=== PATIENT | male | born 1975 | race Two or more races ===

== ENCOUNTER 2016-10-27 18:58 | Inpatient (IN) | payer OTHER ==
[~2016-10-27] VITALS: Ht 172.7 cm; Wt 80.9 kg
[2016-10-27 19:44] LABS: ASPARTATE AMINO TRANSFERASE 57 U/L (15-37); BLOOD UREA NITROGEN 20 mg/dL (7-18)
[2016-10-27 19:47] LABS: HEMOGLOBIN 7.7 g/dL (13.7-18.0); WHITE BLOOD COUNT 45.4 x10^3/uL (3.4-10)
[2016-10-27 19:53] LABS: HEMATOCRIT 22.5 % (39.2-51.8)
[2016-10-27 19:58] LABS: DIFF TOTAL CELLS COUNTED 100 CELL DIFF
[2016-10-27 20:03] LABS: VERIFY COUNTS? YES
[2016-10-27 20:04] LABS: ANISOCYTOSIS 1+; OVALOCYTES 1+
[2016-10-27 20:09] LABS: POIKILOCYTOSIS 1+
[2016-10-27] MEDS ORDERED: SODIUM CHLORIDE 0.9% 1,000 ML IV ONE (21:56)
[2016-10-27] MEDS ORDERED: ONDANSETRON 2MG/ML, 2ML IVPush PRN (22:00)
[2016-10-27] MEDS ORDERED: MORPHINE SULFATE 4 MG/ML, 1ML IVPush PRN (22:00)
[2016-10-27] MEDS: SODIUM CHLORIDE 0.9% 1,000 ML IV SCH (23:43)
[2016-10-28] MEDS ORDERED: ACETAMINOPHEN 325 MG TABLET PO PRN
[2016-10-28] MEDS ORDERED: TEMAZEPAM 15 MG CAPSULE PO PRN
[2016-10-28] MEDS ORDERED: ENALAPRILAT 1.25 MG/ML, 2ML IVPush PRN
[2016-10-28] MEDS ORDERED: ONDANSETRON ODT 4 MG PO PRN
[2016-10-28] MEDS ORDERED: DOCUSATE 100 MG CAPSULE PO PRN
[2016-10-28 03:17] VITALS: BP 108/69
[2016-10-28 05:02] LABS: BLOOD UREA NITROGEN 23 mg/dL (7-18)
[2016-10-28 05:07] LABS: HEMATOCRIT 20.7 % (39.2-51.8)
[2016-10-28 06:15] LABS: DIFF TOTAL CELLS COUNTED 100 CELL DIFF
[2016-10-28 06:20] LABS: VERIFY COUNTS? YES
[2016-10-28 06:21] LABS: ANISOCYTOSIS 1+
[2016-10-28 06:22] LABS: OVALOCYTES 1+; POIKILOCYTOSIS 1+
[2016-10-28 06:23] VITALS: BP 95/62
[2016-10-28] MEDS: SODIUM CHLORIDE 0.9% 1,000 ML IV SCH ×3 (07:43→23:49)
[2016-10-28 09:52] LABS: HIV 1&2 ANTIBODY SCREEN Nonreactive (Nonreactive); HIV-1 p24 ANTIGEN Nonreactive (Nonreactive)
[2016-10-28 09:53] LABS: FERRITIN 561.7 ng/mL (26-388)
[2016-10-28 13:02] VITALS: BP 117/67
[2016-10-28 21:23] VITALS: BP 104/82
[2016-10-29] VITALS (7 sets, daily range): BP systolic 100–124; BP diastolic 60–72
[2016-10-29 04:45] LABS: BLOOD UREA NITROGEN 19 mg/dL (7-18)
[2016-10-29 04:48] LABS: ASPARTATE AMINO TRANSFERASE 59 U/L (15-37)
[2016-10-29] MEDS: SODIUM CHLORIDE 0.9% 1,000 ML IV SCH ×2 (06:26→16:37)
[2016-10-29 08:39] LABS: WHITE BLOOD COUNT 44.4 x10^3/uL (3.4-10)
[2016-10-29 08:41] LABS: HEMOGLOBIN 6.9 g/dL (13.7-18.0)
[2016-10-29 08:42] LABS: DIFF TOTAL CELLS COUNTED 100 CELL DIFF
[2016-10-29 08:45] LABS: ANISOCYTOSIS 1+; OVALOCYTES 1+; VERIFY COUNTS? YES
[2016-10-29 08:48] LABS: POIKILOCYTOSIS 1+
[2016-10-29] MEDS ORDERED: ACETAMINOPHEN 325 MG TABLET PO ONE (10:30)
[2016-10-29] MEDS: HYDROCORTISONE 100 MG INJ. IVPush SCH (11:55)
[2016-10-30] MEDS: SODIUM CHLORIDE 0.9% 1,000 ML IV SCH ×3 (00:11→18:43)
[2016-10-30 01:32] VITALS: BP 118/66
[2016-10-30 04:49] LABS: HEMOGLOBIN 7.2 g/dL (13.7-18.0); WHITE BLOOD COUNT 47.8 x10^3/uL (3.4-10)
[2016-10-30 04:55] LABS: ASPARTATE AMINO TRANSFERASE 37 U/L (15-37); BLOOD UREA NITROGEN 18 mg/dL (7-18)
[2016-10-30 05:51] LABS: DIFF TOTAL CELLS COUNTED 100 CELL DIFF
[2016-10-30 05:57] LABS: VERIFY COUNTS? YES
[2016-10-30 05:58] LABS: ANISOCYTOSIS 1+; OVALOCYTES 1+; POIKILOCYTOSIS 1+
[2016-10-30 06:53] VITALS: BP 114/71
[2016-10-30] MEDS ORDERED: MIDAZOLAM 1 MG/ML, 5ML ONE (12:17)
[2016-10-30] MEDS ORDERED: FENTANYL PF 100 MCG/2ML ONE (12:18)
[2016-10-30] MEDS ORDERED: NALOXONE 1 MG/ML, 2ML ONE (12:18)
[2016-10-30] MEDS ORDERED: FLUMAZENIL 0.1 MG/1 ML, 5ML ONE (12:18)
[2016-10-30 13:03] VITALS: BP 108/66
[2016-10-30 19:18] VITALS: BP 109/61
[2016-10-31] VITALS (10 sets, daily range): BP systolic 104–128; BP diastolic 61–71
[2016-10-31] MEDS: SODIUM CHLORIDE 0.9% 1,000 ML IV SCH ×2 (02:57→18:34)
[2016-10-31 05:32] LABS: WHITE BLOOD COUNT 34.9 x10^3/uL (3.4-10)
[2016-10-31 05:44] LABS: HEMATOCRIT 20.4 % (39.2-51.8); HEMOGLOBIN 6.9 g/dL (13.7-18.0)
[2016-10-31 06:20] LABS: DIFF TOTAL CELLS COUNTED 100 CELL DIFF
[2016-10-31 06:29] LABS: VERIFY COUNTS? YES
[2016-10-31] MEDS ORDERED: ACETAMINOPHEN 325 MG TABLET PO ONE (06:30)
[2016-10-31 06:36] LABS: POIKILOCYTOSIS 1+
[2016-10-31 06:37] LABS: ANISOCYTOSIS 2+
[2016-10-31] MEDS: DIPHENHYDRAMINE 50 MG/ML, 1ML IVPush PRN (08:22)
[2016-10-31] MEDS: HYDROCORTISONE 100 MG INJ. IVPush SCH (08:22)
[2016-11-01] MEDS: SODIUM CHLORIDE 0.9% 1,000 ML IV SCH ×3 (01:44→19:05)
[2016-11-01 02:55] VITALS: BP 112/58
[2016-11-01 07:02] VITALS: BP 119/75
[2016-11-01 10:30] LABS: HEMATOCRIT 24.1 % (39.2-51.8); HEMOGLOBIN 8.4 g/dL (13.7-18.0); WHITE BLOOD COUNT 33.2 x10^3/uL (3.4-10)
[2016-11-01 10:33] LABS: DIFF TOTAL CELLS COUNTED 100 CELL DIFF
[2016-11-01 10:43] LABS: VERIFY COUNTS? YES
[2016-11-01 10:56] LABS: ANISOCYTOSIS 1+; OVALOCYTES 1+
[2016-11-01] MEDS: ALLOPURINOL 300 MG TABLET PO SCH (11:10)
[2016-11-01 12:28] VITALS: BP 121/74
[2016-11-01 19:45] VITALS: BP 115/70
[2016-11-02 01:59] VITALS: BP 105/70
[2016-11-02] MEDS: SODIUM CHLORIDE 0.9% 1,000 ML IV SCH ×4 (03:04→19:05)
[2016-11-02 03:23] LABS: ASPARTATE AMINO TRANSFERASE 63 U/L (15-37); BLOOD UREA NITROGEN 17 mg/dL (7-18)
[2016-11-02 03:41] LABS: HEMATOCRIT 23.9 % (39.2-51.8); HEMOGLOBIN 8.1 g/dL (13.7-18.0); WHITE BLOOD COUNT 27.8 x10^3/uL (3.4-10)
[2016-11-02 04:23] LABS: DIFF TOTAL CELLS COUNTED 100 CELL DIFF
[2016-11-02 04:33] LABS: VERIFY COUNTS? YES
[2016-11-02 04:34] LABS: ANISOCYTOSIS 2+
[2016-11-02 04:47] LABS: OVALOCYTES 1+
[2016-11-02 04:49] LABS: LARGE PLATELETS 1+
[2016-11-02 07:03] VITALS: BP 111/75
[2016-11-02] MEDS: ALLOPURINOL 300 MG TABLET PO SCH (07:56)
[2016-11-02] MEDS: FAMOTIDINE 20 MG/2 ML IVPush SCH (10:15)
[2016-11-02] MEDS: ONDANSETRON 12 MG in SODIUM CHLORIDE 0.9% 50 ML IVPB SCH (10:17)
[2016-11-02] MEDS: SODIUM CHLORIDE 0.9% IV SCH (10:53)
[2016-11-02] MEDS: IDARUBICIN IV SCH (10:53)
[2016-11-02] MEDS: CYTARABINE IV SCH (10:53)
[2016-11-02 13:18] VITALS: BP 104/60
[2016-11-02 20:04] VITALS: BP 102/65
[2016-11-03 02:53] VITALS: BP 113/72
[2016-11-03 03:42] LABS: HEMATOCRIT 23.8 % (39.2-51.8); HEMOGLOBIN 7.9 g/dL (13.7-18.0); WHITE BLOOD COUNT 17.6 x10^3/uL (3.4-10)
[2016-11-03 03:47] LABS: DIFF TOTAL CELLS COUNTED 100 CELL DIFF
[2016-11-03 03:52] LABS: ASPARTATE AMINO TRANSFERASE 50 U/L (15-37); BLOOD UREA NITROGEN 21 mg/dL (7-18)
[2016-11-03 04:00] LABS: ANISOCYTOSIS 1+; POLYCHROMASIA 1+; VERIFY COUNTS? YES
[2016-11-03 04:01] LABS: OVALOCYTES 1+
[2016-11-03 08:04] VITALS: BP 113/58
[2016-11-03] MEDS: SODIUM CHLORIDE 0.9% 1,000 ML IV SCH ×2 (10:02→20:35)
[2016-11-03] MEDS: FAMOTIDINE 20 MG/2 ML IVPush SCH (10:03)
[2016-11-03] MEDS: ONDANSETRON 12 MG in SODIUM CHLORIDE 0.9% 50 ML IVPB SCH (10:03)
[2016-11-03] MEDS: ALLOPURINOL 300 MG TABLET PO SCH (10:03)
[2016-11-03] MEDS: IDARUBICIN IV SCH (11:37)
[2016-11-03] MEDS: CYTARABINE IV SCH (11:38)
[2016-11-03] MEDS: SODIUM CHLORIDE 0.9% IV SCH (11:38)
[2016-11-03 13:53] VITALS: BP 102/63
[2016-11-03 19:34] VITALS: BP 97/66
[2016-11-04 01:33] VITALS: BP 113/68
[2016-11-04 04:51] LABS: HEMATOCRIT 23.6 % (39.2-51.8); HEMOGLOBIN 7.9 g/dL (13.7-18.0); WHITE BLOOD COUNT 8.4 x10^3/uL (3.4-10)
[2016-11-04 05:00] LABS: ASPARTATE AMINO TRANSFERASE 53 U/L (15-37); BLOOD UREA NITROGEN 25 mg/dL (7-18)
[2016-11-04 06:36] LABS: DIFF TOTAL CELLS COUNTED 100 CELL DIFF
[2016-11-04 06:39] LABS: VERIFY COUNTS? YES
[2016-11-04 06:40] LABS: ANISOCYTOSIS 1+
[2016-11-04 06:41] LABS: MICROCYTOSIS 1+; OVALOCYTES 1+
[2016-11-04 06:42] LABS: SCHISTOCYTES 1+
[2016-11-04 07:15] VITALS: BP 102/58
[2016-11-04] MEDS: SODIUM CHLORIDE 0.9% 1,000 ML IV SCH ×2 (09:07→19:58)
[2016-11-04] MEDS: ALLOPURINOL 300 MG TABLET PO SCH (09:07)
[2016-11-04] MEDS: ONDANSETRON 12 MG in SODIUM CHLORIDE 0.9% 50 ML IVPB SCH (10:07)
[2016-11-04] MEDS: FAMOTIDINE 20 MG/2 ML IVPush SCH (10:07)
[2016-11-04] MEDS ORDERED: IDARUBICIN IV ONE (11:30)
[2016-11-04 13:11] VITALS: BP 104/66
[2016-11-04] MEDS: CYTARABINE IV SCH (13:42)
[2016-11-04] MEDS: SODIUM CHLORIDE 0.9% IV SCH (13:42)
[2016-11-04] MEDS: ACYCLOVIR 400 MG TABLET PO SCH (19:57)
[2016-11-04] MEDS: CIPROFLOXACIN 500 MG TABLET PO SCH (19:57)
[2016-11-04 20:27] VITALS: BP 109/68
[2016-11-04] MEDS ORDERED: ACYCLOVIR 400 MG TABLET PO SCH (21:00)
[2016-11-04] MEDS ORDERED: CIPROFLOXACIN 500 MG TABLET PO SCH (21:00)
[2016-11-05] VITALS (9 sets, daily range): BP systolic 98–117; BP diastolic 62–73
[2016-11-05 04:35] LABS: HEMOGLOBIN 7.7 g/dL (13.7-18.0); WHITE BLOOD COUNT 3.8 x10^3/uL (3.4-10)
[2016-11-05 04:37] LABS: ASPARTATE AMINO TRANSFERASE 62 U/L (15-37); BLOOD UREA NITROGEN 22 mg/dL (7-18)
[2016-11-05 04:38] LABS: HEMATOCRIT 22.8 % (39.2-51.8)
[2016-11-05 05:20] LABS: DIFF TOTAL CELLS COUNTED 100 CELL DIFF
[2016-11-05 05:25] LABS: VERIFY COUNTS? YES
[2016-11-05 05:26] LABS: ANISOCYTOSIS 1+; OVALOCYTES 1+
[2016-11-05] MEDS: HYDROCORTISONE 100 MG INJ. IVPush SCH (08:59)
[2016-11-05] MEDS: CIPROFLOXACIN 500 MG TABLET PO SCH ×2 (09:00→20:20)
[2016-11-05] MEDS: ACYCLOVIR 400 MG TABLET PO SCH ×2 (09:00→20:20)
[2016-11-05] MEDS: ALLOPURINOL 300 MG TABLET PO SCH (09:00)
[2016-11-05] MEDS: FAMOTIDINE 20 MG/2 ML IVPush SCH (10:03)
[2016-11-05] MEDS: ONDANSETRON 12 MG in SODIUM CHLORIDE 0.9% 50 ML IVPB SCH (14:02)
[2016-11-05] MEDS: SODIUM CHLORIDE 0.9% 1,000 ML IV SCH (14:03)
[2016-11-05] MEDS: CYTARABINE IV SCH (14:36)
[2016-11-05] MEDS: SODIUM CHLORIDE 0.9% IV SCH (14:36)
[2016-11-05] MEDS ORDERED: HYDROCORTISONE 100 MG INJ. IVPush ONE (19:17)
[2016-11-05] MEDS ORDERED: ONDANSETRON ODT 4 MG PO PRN (19:30)
[2016-11-05] MEDS ORDERED: TEMAZEPAM 15 MG CAPSULE PO PRN (19:30)
[2016-11-05] MEDS ORDERED: ENALAPRILAT 1.25 MG/ML, 2ML IVPush PRN (19:30)
[2016-11-05] MEDS: DOCUSATE 100 MG CAPSULE PO PRN (20:30)
[2016-11-06] MEDS: SODIUM CHLORIDE 0.9% 1,000 ML IV SCH ×2 (03:12→15:07)
[2016-11-06 03:32] VITALS: BP 123/70
[2016-11-06 03:44] LABS: ASPARTATE AMINO TRANSFERASE 38 U/L (15-37); BLOOD UREA NITROGEN 25 mg/dL (7-18)
[2016-11-06 03:47] LABS: HEMATOCRIT 24.6 % (39.2-51.8); HEMOGLOBIN 8.6 g/dL (13.7-18.0); WHITE BLOOD COUNT 3.1 x10^3/uL (3.4-10)
[2016-11-06 04:08] LABS: DIFF TOTAL CELLS COUNTED 100 CELL DIFF
[2016-11-06 04:19] LABS: ANISOCYTOSIS 1+; OVALOCYTES 1+; VERIFY COUNTS? YES
[2016-11-06] MEDS: ALLOPURINOL 300 MG TABLET PO SCH (08:11)
[2016-11-06] MEDS: CIPROFLOXACIN 500 MG TABLET PO SCH ×2 (08:11→19:50)
[2016-11-06] MEDS: DOCUSATE 100 MG CAPSULE PO PRN ×2 (08:11→19:52)
[2016-11-06] MEDS: ACYCLOVIR 400 MG TABLET PO SCH ×2 (08:11→19:50)
[2016-11-06 08:13] VITALS: BP 105/63
[2016-11-06] MEDS: ONDANSETRON 12 MG in SODIUM CHLORIDE 0.9% 50 ML IVPB SCH (10:22)
[2016-11-06] MEDS: FAMOTIDINE 20 MG/2 ML IVPush SCH (10:22)
[2016-11-06 13:51] VITALS: BP 114/64
[2016-11-06] MEDS: CYTARABINE IV SCH (15:21)
[2016-11-06] MEDS: SODIUM CHLORIDE 0.9% IV SCH (15:21)
[2016-11-06 19:13] VITALS: BP 111/69
[2016-11-07] MEDS: SODIUM CHLORIDE 0.9% 1,000 ML IV SCH ×2 (02:34→16:10)
[2016-11-07 02:37] VITALS: BP 116/70
[2016-11-07 05:28] LABS: HEMATOCRIT 23.9 % (39.2-51.8); HEMOGLOBIN 8.2 g/dL (13.7-18.0)
[2016-11-07 05:30] LABS: ASPARTATE AMINO TRANSFERASE 36 U/L (15-37); BLOOD UREA NITROGEN 19 mg/dL (7-18)
[2016-11-07 05:34] LABS: WHITE BLOOD COUNT 1.2 x10^3/uL (3.4-10)
[2016-11-07 05:45] LABS: DIFF TOTAL CELLS COUNTED 100 CELL DIFF
[2016-11-07 05:46] LABS: VERIFY COUNTS? YES
[2016-11-07 05:47] LABS: ANISOCYTOSIS 1+
[2016-11-07 07:46] VITALS: BP 103/63
[2016-11-07] MEDS: CIPROFLOXACIN 500 MG TABLET PO SCH ×2 (08:40→20:52)
[2016-11-07] MEDS: ACYCLOVIR 400 MG TABLET PO SCH ×2 (08:40→20:52)
[2016-11-07] MEDS: ALLOPURINOL 300 MG TABLET PO SCH (08:41)
[2016-11-07] MEDS: FAMOTIDINE 20 MG/2 ML IVPush SCH (12:58)
[2016-11-07] MEDS: ONDANSETRON 12 MG in SODIUM CHLORIDE 0.9% 50 ML IVPB SCH (13:18)
[2016-11-07] MEDS: DOCUSATE 100 MG CAPSULE PO PRN ×2 (16:16→20:55)
[2016-11-07 17:07] VITALS: BP 116/65
[2016-11-07] MEDS: CYTARABINE IV SCH (17:37)
[2016-11-07] MEDS: SODIUM CHLORIDE 0.9% IV SCH (17:37)
[2016-11-07 19:58] VITALS: BP 108/69
[2016-11-08 04:25] VITALS: BP 118/72
[2016-11-08] MEDS: SODIUM CHLORIDE 0.9% 1,000 ML IV SCH ×2 (04:32→18:01)
[2016-11-08 05:16] LABS: HEMATOCRIT 23.4 % (39.2-51.8); HEMOGLOBIN 7.9 g/dL (13.7-18.0)
[2016-11-08 05:18] LABS: WHITE BLOOD COUNT 0.8 x10^3/uL (3.4-10)
[2016-11-08 05:36] LABS: ASPARTATE AMINO TRANSFERASE 44 U/L (15-37); BLOOD UREA NITROGEN 14 mg/dL (7-18)
[2016-11-08 06:16] LABS: DIFF TOTAL CELLS COUNTED 100 CELL DIFF
[2016-11-08 06:23] LABS: VERIFY COUNTS? YES
[2016-11-08 06:25] LABS: ANISOCYTOSIS 1+
[2016-11-08 07:23] VITALS: BP 100/67
[2016-11-08] MEDS: ALLOPURINOL 300 MG TABLET PO SCH (09:32)
[2016-11-08] MEDS: CIPROFLOXACIN 500 MG TABLET PO SCH ×2 (09:32→20:46)
[2016-11-08] MEDS: ACYCLOVIR 400 MG TABLET PO SCH ×2 (09:32→20:46)
[2016-11-08] MEDS: DOCUSATE 100 MG CAPSULE PO PRN (09:36)
[2016-11-08 14:00] VITALS: BP 117/71
[2016-11-08] MEDS: NYSTATIN 500,000 UNITS/5 ML UDC PO SCH ×2 (16:16→20:46)
[2016-11-08] MEDS ORDERED: FAMOTIDINE 20 MG/2 ML IVPush ONE (17:00)
[2016-11-08] MEDS ORDERED: ONDANSETRON 12 MG in SODIUM CHLORIDE 0.9% 50 ML IVPB ONE (17:00)
[2016-11-08] MEDS: CYTARABINE IV SCH (18:06)
[2016-11-08] MEDS: SODIUM CHLORIDE 0.9% IV SCH (18:06)
[2016-11-08 19:26] VITALS: BP 103/66
[2016-11-09] VITALS (7 sets, daily range): BP systolic 101–129; BP diastolic 61–76
[2016-11-09] MEDS: NYSTATIN 500,000 UNITS/5 ML UDC PO SCH ×4 (04:16→20:28)
[2016-11-09] MEDS: SODIUM CHLORIDE 0.9% 1,000 ML IV SCH (04:16)
[2016-11-09 06:18] LABS: HEMOGLOBIN 7.4 g/dL (13.7-18.0)
[2016-11-09 06:21] LABS: HEMATOCRIT 21.5 % (39.2-51.8); WHITE BLOOD COUNT 0.5 x10^3/uL (3.4-10)
[2016-11-09 06:30] LABS: BLOOD UREA NITROGEN 13 mg/dL (7-18)
[2016-11-09 06:34] LABS: ASPARTATE AMINO TRANSFERASE 53 U/L (15-37)
[2016-11-09] MEDS: ALLOPURINOL 300 MG TABLET PO SCH (09:33)
[2016-11-09] MEDS: ACYCLOVIR 400 MG TABLET PO SCH ×2 (09:33→20:27)
[2016-11-09] MEDS: CIPROFLOXACIN 500 MG TABLET PO SCH ×2 (09:33→20:28)
[2016-11-09] MEDS: DIPHENHYDRAMINE 50 MG/ML, 1ML IVPush PRN (09:35)
[2016-11-09] MEDS: ACETAMINOPHEN 325 MG TABLET PO PRN (09:35)
[2016-11-10] VITALS (8 sets, daily range): BP systolic 100–126; BP diastolic 55–76
[2016-11-10] MEDS: SODIUM CHLORIDE 0.9% 1,000 ML IV SCH ×2 (03:24→16:56)
[2016-11-10 03:53] LABS: ASPARTATE AMINO TRANSFERASE 92 U/L (15-37); BLOOD UREA NITROGEN 12 mg/dL (7-18)
[2016-11-10] MEDS ORDERED: VANCOMYCIN PER PHARMACY MC PRN (04:00)
[2016-11-10] MEDS ORDERED: VANCOMYCIN PMX 1GM/200ML 200 ML IV ONE (04:00)
[2016-11-10 04:04] LABS: HEMATOCRIT 20.2 % (39.2-51.8); HEMOGLOBIN 6.9 g/dL (13.7-18.0); WHITE BLOOD COUNT 0.4 x10^3/uL (3.4-10)
[2016-11-10] MEDS: CEFEPIME 2 GM in DEXTROSE 5% 100 ML IV SCH ×3 (04:09→20:48)
[2016-11-10] MEDS: ACETAMINOPHEN 325 MG TABLET PO PRN ×3 (04:09→22:39)
[2016-11-10 04:10] LABS: DIFF TOTAL CELLS COUNTED 100 CELL DIFF
[2016-11-10 04:12] LABS: VERIFY COUNTS? YES
[2016-11-10 04:13] LABS: ANISOCYTOSIS 1+; OVALOCYTES 1+
[2016-11-10] MEDS: NYSTATIN 500,000 UNITS/5 ML UDC PO SCH ×4 (04:50→20:48)
[2016-11-10] MEDS: VANCOMYCIN 1,700 MG in SODIUM CHLORIDE 0.9% 250 ML IV SCH ×2 (04:51→16:56)
[2016-11-10] MEDS ORDERED: PHARMACOKINETIC CONSULTATION MC ONE (05:00)
[2016-11-10] MEDS ORDERED: PHARMACOKINETIC MONITORING MC PRN (05:00)
[2016-11-10] MEDS: ACYCLOVIR 400 MG TABLET PO SCH ×2 (08:20→20:49)
[2016-11-10] MEDS: CIPROFLOXACIN 500 MG TABLET PO SCH (08:20)
[2016-11-10] MEDS: ALLOPURINOL 300 MG TABLET PO SCH (08:20)
[2016-11-10 15:50] LABS: PATH.CAST-FLAG NOT PRESENT; SPERM-FLAG NOT PRESENT; SRC-FLAG NOT PRESENT; XTAL-FLAG NOT PRESENT; YLC-FLAG NOT PRESENT
[2016-11-11] VITALS (7 sets, daily range): BP systolic 98–121; BP diastolic 49–76
[2016-11-11] MEDS: CEFEPIME 2 GM in DEXTROSE 5% 100 ML IV SCH ×3 (04:18→20:08)
[2016-11-11] MEDS: NYSTATIN 500,000 UNITS/5 ML UDC PO SCH ×4 (05:17→20:08)
[2016-11-11] MEDS: VANCOMYCIN 1,700 MG in SODIUM CHLORIDE 0.9% 250 ML IV SCH ×2 (05:17→15:54)
[2016-11-11] MEDS: ACETAMINOPHEN 325 MG TABLET PO PRN ×3 (05:24→20:12)
[2016-11-11 05:43] LABS: HEMOGLOBIN 7.8 g/dL (13.7-18.0)
[2016-11-11 05:45] LABS: HEMATOCRIT 22.2 % (39.2-51.8); WHITE BLOOD COUNT 0.4 x10^3/uL (3.4-10)
[2016-11-11 05:57] LABS: ASPARTATE AMINO TRANSFERASE 66 U/L (15-37); BLOOD UREA NITROGEN 14 mg/dL (7-18)
[2016-11-11] MEDS: ACYCLOVIR 400 MG TABLET PO SCH ×2 (07:44→20:08)
[2016-11-11] MEDS: ALLOPURINOL 300 MG TABLET PO SCH (07:44)
[2016-11-11] MEDS: DIPHENHYDRAMINE 50 MG/ML, 1ML IVPush PRN (08:39)
[2016-11-11] MEDS: SODIUM CHLORIDE 0.9% 1,000 ML IV SCH (10:42)
[2016-11-11] MEDS ORDERED: ONDANSETRON ODT 4 MG PO PRN (17:28)
[2016-11-11] MEDS ORDERED: [UNRECOGNIZED DRUG - REMARK] MC PRN (18:00)
[2016-11-12 01:26] VITALS: BP 94/55
[2016-11-12] MEDS: SODIUM CHLORIDE 0.9% 1,000 ML IV SCH ×3 (01:30→20:54)
[2016-11-12] MEDS: CEFEPIME 2 GM in DEXTROSE 5% 100 ML IV SCH ×3 (04:13→20:54)
[2016-11-12 04:42] LABS: ASPARTATE AMINO TRANSFERASE 62 U/L (15-37)
[2016-11-12 04:48] LABS: BLOOD UREA NITROGEN 13 mg/dL (7-18); HEMOGLOBIN 7.1 g/dL (13.7-18.0)
[2016-11-12 04:50] LABS: HEMATOCRIT 20.3 % (39.2-51.8); WHITE BLOOD COUNT 0.3 x10^3/uL (3.4-10)
[2016-11-12] MEDS: NYSTATIN 500,000 UNITS/5 ML UDC PO SCH ×5 (06:09→20:56)
[2016-11-12 08:03] VITALS: BP 122/76
[2016-11-12] MEDS: ACETAMINOPHEN 325 MG TABLET PO PRN (09:35)
[2016-11-12] MEDS: ACYCLOVIR 400 MG TABLET PO SCH ×2 (09:35→20:54)
[2016-11-12] MEDS: ALLOPURINOL 300 MG TABLET PO SCH (09:35)
[2016-11-12 11:50] VITALS: BP 115/74
[2016-11-12 14:23] VITALS: BP 113/73
[2016-11-12] MEDS ORDERED: ENALAPRILAT 1.25 MG/ML, 2ML IVPush PRN (18:30)
[2016-11-12] MEDS ORDERED: ONDANSETRON ODT 4 MG PO PRN (18:30)
[2016-11-12] MEDS ORDERED: TEMAZEPAM 15 MG CAPSULE PO PRN (18:30)
[2016-11-12] MEDS ORDERED: DOCUSATE 100 MG CAPSULE PO PRN (18:30)
[2016-11-12 18:57] VITALS: BP 119/74
[2016-11-13] VITALS (10 sets, daily range): BP systolic 104–126; BP diastolic 66–75
[2016-11-13] MEDS: CEFEPIME 2 GM in DEXTROSE 5% 100 ML IV SCH ×3 (04:48→21:29)
[2016-11-13 05:08] LABS: HEMATOCRIT 19.4 % (39.2-51.8); HEMOGLOBIN 6.7 g/dL (13.7-18.0); WHITE BLOOD COUNT 0.4 x10^3/uL (3.4-10)
[2016-11-13 05:30] LABS: ASPARTATE AMINO TRANSFERASE 22 U/L (15-37); BLOOD UREA NITROGEN 12 mg/dL (7-18)
[2016-11-13 05:51] LABS: DIFF TOTAL CELLS COUNTED 25 CELL DIFFERENTIAL
[2016-11-13 05:54] LABS: ANISOCYTOSIS 1+; VERIFY COUNTS? YES
[2016-11-13] MEDS: ACYCLOVIR 400 MG TABLET PO SCH ×2 (10:00→21:29)
[2016-11-13] MEDS: NYSTATIN 500,000 UNITS/5 ML UDC PO SCH (10:00)
[2016-11-13] MEDS: SODIUM CHLORIDE 0.9% 1,000 ML IV SCH ×2 (10:00→21:29)
[2016-11-13] MEDS: ALLOPURINOL 300 MG TABLET PO SCH (10:00)
[2016-11-13] MEDS: ACETAMINOPHEN 325 MG TABLET PO PRN (10:33)
[2016-11-14 01:14] VITALS: BP 123/76
[2016-11-14] MEDS: ACETAMINOPHEN 325 MG TABLET PO PRN ×4 (01:18→23:11)
[2016-11-14] MEDS: CEFEPIME 2 GM in DEXTROSE 5% 100 ML IV SCH ×3 (04:41→19:59)
[2016-11-14 05:05] LABS: ASPARTATE AMINO TRANSFERASE 9 U/L (15-37); BLOOD UREA NITROGEN 10 mg/dL (7-18); HEMOGLOBIN 7.9 g/dL (13.7-18.0)
[2016-11-14 05:11] LABS: WHITE BLOOD COUNT 0.5 x10^3/uL (3.4-10)
[2016-11-14 05:37] LABS: DIFF TOTAL CELLS COUNTED 25 CELL DIFFERENTIAL
[2016-11-14 05:40] LABS: VERIFY COUNTS? YES
[2016-11-14 05:42] LABS: ANISOCYTOSIS 1+
[2016-11-14 08:00] VITALS: BP 124/81
[2016-11-14] MEDS: ALLOPURINOL 300 MG TABLET PO SCH (08:44)
[2016-11-14] MEDS: ACYCLOVIR 400 MG TABLET PO SCH ×2 (08:44→20:00)
[2016-11-14] MEDS: SODIUM CHLORIDE 0.9% 1,000 ML IV SCH ×2 (11:28→23:11)
[2016-11-14 13:00] VITALS: BP 114/70
[2016-11-14 13:36] VITALS: BP 114/72
[2016-11-14] MEDS ORDERED: OMNIPAQUE 350 MG/ML, 75ML BOTTLE ONE (17:15)
[2016-11-14 19:53] VITALS: BP 124/82
[2016-11-15] VITALS (13 sets, daily range): BP systolic 96–126; BP diastolic 61–70
[2016-11-15] MEDS: CEFEPIME 2 GM in DEXTROSE 5% 100 ML IV SCH ×3 (05:00→19:57)
[2016-11-15 05:35] LABS: HEMOGLOBIN 7.4 g/dL (13.7-18.0)
[2016-11-15 05:42] LABS: ASPARTATE AMINO TRANSFERASE 12 U/L (15-37); BLOOD UREA NITROGEN 10 mg/dL (7-18)
[2016-11-15 05:59] LABS: HEMATOCRIT 21.3 % (39.2-51.8); WHITE BLOOD COUNT 0.4 x10^3/uL (3.4-10)
[2016-11-15 06:04] LABS: DIFF TOTAL CELLS COUNTED 25 CELL DIFFERENTIAL
[2016-11-15 06:07] LABS: ANISOCYTOSIS 1+; VERIFY COUNTS? YES
[2016-11-15] MEDS ORDERED: LIDOCAINE 1%, 20ML ONE (08:31)
[2016-11-15] MEDS: ACYCLOVIR 400 MG TABLET PO SCH ×2 (08:44→19:57)
[2016-11-15] MEDS: ACETAMINOPHEN 325 MG TABLET PO PRN ×3 (08:44→22:24)
[2016-11-15] MEDS: ALLOPURINOL 300 MG TABLET PO SCH (08:44)
[2016-11-15] MEDS ORDERED: VANCOMYCIN IV ONE ×2 (09:30→16:30)
[2016-11-15] MEDS ORDERED: SODIUM CHLORIDE 0.9% IV ONE ×2 (09:30→16:30)
[2016-11-15] MEDS ORDERED: FENTANYL PF 100 MCG/2ML ONE (10:11)
[2016-11-15] MEDS ORDERED: MIDAZOLAM 1 MG/ML, 5ML ONE (10:11)
[2016-11-15] MEDS: SODIUM CHLORIDE 0.9% 1,000 ML IV SCH (11:25)
[2016-11-15] MEDS ORDERED: VANCOMYCIN 1,300 MG in SODIUM CHLORIDE 0.9% 250 ML IVPB SCH (21:00)
[2016-11-16 00:06] VITALS: BP 123/75
[2016-11-16] MEDS: SODIUM CHLORIDE 0.9% 1,000 ML IV SCH ×2 (02:45→13:20)
[2016-11-16] MEDS: VANCOMYCIN 1,300 MG in SODIUM CHLORIDE 0.9% 250 ML IVPB SCH ×2 (04:30→16:05)
[2016-11-16 04:52] LABS: HEMATOCRIT 24.8 % (39.2-51.8); HEMOGLOBIN 8.5 g/dL (13.7-18.0)
[2016-11-16 04:59] LABS: WHITE BLOOD COUNT 0.4 x10^3/uL (3.4-10)
[2016-11-16 05:01] LABS: BLOOD UREA NITROGEN 11 mg/dL (7-18)
[2016-11-16 05:20] LABS: ANISOCYTOSIS 1+; DIFF TOTAL CELLS COUNTED 25 CELL DIFFERENTIAL; VERIFY COUNTS? YES
[2016-11-16] MEDS: CEFEPIME 2 GM in DEXTROSE 5% 100 ML IV SCH ×3 (05:54→20:51)
[2016-11-16 06:54] VITALS: BP 122/69
[2016-11-16] MEDS: ACYCLOVIR 400 MG TABLET PO SCH ×2 (07:49→20:51)
[2016-11-16] MEDS: ALLOPURINOL 300 MG TABLET PO SCH (07:49)
[2016-11-16] MEDS: ACETAMINOPHEN 325 MG TABLET PO PRN ×2 (07:59→16:06)
[2016-11-16 13:22] VITALS: BP 104/73
[2016-11-16 18:32] VITALS: BP 101/63
[2016-11-17] VITALS (7 sets, daily range): BP systolic 106–133; BP diastolic 66–75
[2016-11-17] MEDS: ACETAMINOPHEN 325 MG TABLET PO PRN ×4 (02:25→20:51)
[2016-11-17] MEDS: SODIUM CHLORIDE 0.9% 1,000 ML IV SCH ×2 (02:26→20:51)
[2016-11-17] MEDS: VANCOMYCIN 1,300 MG in SODIUM CHLORIDE 0.9% 250 ML IVPB SCH (04:13)
[2016-11-17 05:38] LABS: HEMOGLOBIN 7.7 g/dL (13.7-18.0)
[2016-11-17 05:51] LABS: ASPARTATE AMINO TRANSFERASE 39 U/L (15-37); BLOOD UREA NITROGEN 11 mg/dL (7-18); LACTATE DEHYDROGENASE 99 U/L (87-241)
[2016-11-17 05:56] LABS: HEMATOCRIT 21.6 % (39.2-51.8); WHITE BLOOD COUNT 0.3 x10^3/uL (3.4-10)
[2016-11-17] MEDS: CEFEPIME 2 GM in DEXTROSE 5% 100 ML IV SCH ×3 (06:03→20:51)
[2016-11-17 06:21] LABS: ANISOCYTOSIS 2+; HYPOCHROMIA 1+
[2016-11-17] MEDS: ALLOPURINOL 300 MG TABLET PO SCH (07:15)
[2016-11-17] MEDS: ACYCLOVIR 400 MG TABLET PO SCH ×2 (07:15→20:51)
[2016-11-17] MEDS: DIPHENHYDRAMINE 50 MG/ML, 1ML IVPush PRN (08:54)
[2016-11-17] MEDS: MICAFUNGIN 100 MG in SODIUM CHLORIDE 0.9% 100 ML IV SCH (10:55)
[2016-11-17] MEDS: VANCOMYCIN 1,700 MG in SODIUM CHLORIDE 0.9% 250 ML IVPB SCH (16:05)
[2016-11-18] VITALS (9 sets, daily range): BP systolic 86–132; BP diastolic 58–79
[2016-11-18] MEDS: ACETAMINOPHEN 325 MG TABLET PO PRN (03:30)
[2016-11-18] MEDS: VANCOMYCIN 1,700 MG in SODIUM CHLORIDE 0.9% 250 ML IVPB SCH (03:31)
[2016-11-18] MEDS ORDERED: CATHFLO-ALTEPLASE 2 MG/2 ML CATHFLUSH ONE ×2 (05:30)
[2016-11-18] MEDS: CEFEPIME 2 GM in DEXTROSE 5% 100 ML IV SCH ×3 (05:51→20:25)
[2016-11-18] MEDS: ALLOPURINOL 300 MG TABLET PO SCH (08:34)
[2016-11-18] MEDS: ACYCLOVIR 400 MG TABLET PO SCH ×2 (08:34→20:25)
[2016-11-18 10:09] LABS: BLOOD UREA NITROGEN 11 mg/dL (7-18)
[2016-11-18 10:30] LABS: HEMOGLOBIN 7.5 g/dL (13.7-18.0)
[2016-11-18] MEDS: MICAFUNGIN 100 MG in SODIUM CHLORIDE 0.9% 100 ML IV SCH (10:31)
[2016-11-18 10:34] LABS: HEMATOCRIT 21.7 % (39.2-51.8); WHITE BLOOD COUNT 0.4 x10^3/uL (3.4-10)
[2016-11-18 10:36] LABS: DIFF TOTAL CELLS COUNTED 25 CELL DIFFE
[2016-11-18 10:37] LABS: ANISOCYTOSIS 1+
[2016-11-18 10:38] LABS: HYPOCHROMIA 1+; VERIFY COUNTS? YES
[2016-11-18] MEDS: DIPHENHYDRAMINE 50 MG/ML, 1ML IVPush PRN (11:48)
[2016-11-18] MEDS ORDERED: ACETAMINOPHEN 325 MG TABLET PO ONE (14:00)
[2016-11-18] MEDS ORDERED: HYDROCORTISONE 100 MG INJ. IVPush ONE (14:00)
[2016-11-18] MEDS: SODIUM CHLORIDE 0.9% 1,000 ML IV SCH (14:14)
[2016-11-18] MEDS: VANCOMYCIN 1,500 MG in SODIUM CHLORIDE 0.9% 250 ML IV SCH (18:48)
[2016-11-18] MEDS ORDERED: ENALAPRILAT 1.25 MG/ML, 2ML IVPush PRN (22:00)
[2016-11-18] MEDS ORDERED: TEMAZEPAM 15 MG CAPSULE PO PRN (22:00)
[2016-11-19] VITALS (7 sets, daily range): BP systolic 99–115; BP diastolic 55–71
[2016-11-19] MEDS: VANCOMYCIN 1,500 MG in SODIUM CHLORIDE 0.9% 250 ML IV SCH (02:23)
[2016-11-19] MEDS: SODIUM CHLORIDE 0.9% 1,000 ML IV SCH ×2 (02:24→15:47)
[2016-11-19] MEDS: ACETAMINOPHEN 325 MG TABLET PO PRN ×2 (02:28→11:24)
[2016-11-19 03:02] LABS: BLOOD UREA NITROGEN 12 mg/dL (7-18)
[2016-11-19 03:06] LABS: ASPARTATE AMINO TRANSFERASE 41 U/L (15-37)
[2016-11-19 03:15] LABS: HEMATOCRIT 20.1 % (39.2-51.8); WHITE BLOOD COUNT 0.4 x10^3/uL (3.4-10)
[2016-11-19 03:28] LABS: DIFF TOTAL CELLS COUNTED 100 CELL DIFF
[2016-11-19 03:33] LABS: ANISOCYTOSIS 1+; VERIFY COUNTS? YES
[2016-11-19 03:35] LABS: OVALOCYTES 1+
[2016-11-19] MEDS: CEFEPIME 2 GM in DEXTROSE 5% 100 ML IV SCH (04:22)
[2016-11-19] MEDS: ALLOPURINOL 300 MG TABLET PO SCH (08:03)
[2016-11-19] MEDS: ACYCLOVIR 400 MG TABLET PO SCH ×2 (08:03→20:37)
[2016-11-19] MEDS: MICAFUNGIN 100 MG in SODIUM CHLORIDE 0.9% 100 ML IV SCH (09:44)
[2016-11-19] MEDS ORDERED: ACETAMINOPHEN 325 MG TABLET PO PRN (10:30)
[2016-11-19] MEDS: HYDROCORTISONE 100 MG INJ. IVPush PRN (11:24)
[2016-11-19] MEDS: DAPTOMYCIN 500 MG in SODIUM CHLORIDE 0.9% 100 ML IVPB SCH (11:24)
[2016-11-19] MEDS: TBO-FILGRASTIM 480 MCG/0.8 ML SQ SCH (17:15)
[2016-11-19] MEDS ORDERED: DIPHENHYDRAMINE/ZINC CRM 2%, 30GM TP PRN (19:30)
[2016-11-19] MEDS ORDERED: DIPHENHYDRAMINE 50 MG/ML, 1ML IVPush ONE (21:00)
[2016-11-20] VITALS (8 sets, daily range): BP systolic 85–130; BP diastolic 65–74
[2016-11-20] MEDS: ACETAMINOPHEN 325 MG TABLET PO PRN ×3 (01:37→23:29)
[2016-11-20] MEDS: SODIUM CHLORIDE 0.9% 1,000 ML IV SCH ×2 (01:38→18:06)
[2016-11-20 02:01] LABS: HEMATOCRIT 21.3 % (39.2-51.8); HEMOGLOBIN 6.9 g/dL (13.7-18.0); WHITE BLOOD COUNT 0.4 x10^3/uL (3.4-10)
[2016-11-20 02:10] LABS: ASPARTATE AMINO TRANSFERASE 18 U/L (15-37); BLOOD UREA NITROGEN 11 mg/dL (7-18)
[2016-11-20 02:25] LABS: ANISOCYTOSIS 1+; DIFF TOTAL CELLS COUNTED 50 CELL DIFF; VERIFY COUNTS? YES
[2016-11-20 02:27] LABS: OVALOCYTES 1+
[2016-11-20 04:29] LABS: HEMATOCRIT 22.6 % (39.2-51.8); WHITE BLOOD COUNT 0.5 x10^3/uL (3.4-10)
[2016-11-20 04:30] LABS: ASPARTATE AMINO TRANSFERASE 21 U/L (15-37); BLOOD UREA NITROGEN 12 mg/dL (7-18)
[2016-11-20 05:37] LABS: DIFF TOTAL CELLS COUNTED 50 CELL DIFFERENTIAL
[2016-11-20 05:43] LABS: VERIFY COUNTS? YES
[2016-11-20 05:44] LABS: ANISOCYTOSIS 1+; OVALOCYTES 1+
[2016-11-20] MEDS ORDERED: MEROPENEM 1 GM in SODIUM CHLORIDE 0.9% 50 ML IV SCH (07:30)
[2016-11-20] MEDS: HYDROCORTISONE 100 MG INJ. IVPush PRN (07:59)
[2016-11-20] MEDS: MEROPENEM 1 GM in SODIUM CHLORIDE 0.9% 100 ML IV SCH ×3 (08:27→23:30)
[2016-11-20] MEDS: ALLOPURINOL 300 MG TABLET PO SCH (09:41)
[2016-11-20] MEDS: ACYCLOVIR 400 MG TABLET PO SCH ×2 (09:41→21:24)
[2016-11-20] MEDS: MICAFUNGIN 100 MG in SODIUM CHLORIDE 0.9% 100 ML IV SCH (10:47)
[2016-11-20] MEDS: DAPTOMYCIN 500 MG in SODIUM CHLORIDE 0.9% 100 ML IVPB SCH (12:54)
[2016-11-20] MEDS: TBO-FILGRASTIM 480 MCG/0.8 ML SQ SCH (18:05)
[2016-11-21 03:00] VITALS: BP 113/72
[2016-11-21] MEDS: SODIUM CHLORIDE 0.9% 1,000 ML IV SCH ×2 (03:15→13:41)
[2016-11-21 03:58] LABS: HEMOGLOBIN 7.2 g/dL (13.7-18.0)
[2016-11-21 04:00] LABS: HEMATOCRIT 21.3 % (39.2-51.8); WHITE BLOOD COUNT 0.4 x10^3/uL (3.4-10)
[2016-11-21 04:06] LABS: ASPARTATE AMINO TRANSFERASE 28 U/L (15-37); BLOOD UREA NITROGEN 11 mg/dL (7-18)
[2016-11-21 04:19] LABS: DIFF TOTAL CELLS COUNTED 100 CELL DIFF
[2016-11-21 04:29] LABS: ANISOCYTOSIS 1+; OVALOCYTES 1+; VERIFY COUNTS? YES
[2016-11-21] MEDS: MEROPENEM 1 GM in SODIUM CHLORIDE 0.9% 100 ML IV SCH ×3 (07:33→23:01)
[2016-11-21] MEDS: ALLOPURINOL 300 MG TABLET PO SCH (07:37)
[2016-11-21] MEDS: ACYCLOVIR 400 MG TABLET PO SCH ×2 (07:37→19:28)
[2016-11-21 07:39] VITALS: BP 107/72
[2016-11-21] MEDS: MICAFUNGIN 100 MG in SODIUM CHLORIDE 0.9% 100 ML IV SCH ×2 (10:00→10:44)
[2016-11-21] MEDS: ACETAMINOPHEN 325 MG TABLET PO PRN ×2 (10:49→19:29)
[2016-11-21 12:35] VITALS: BP 103/65
[2016-11-21] MEDS: DAPTOMYCIN 500 MG in SODIUM CHLORIDE 0.9% 100 ML IVPB SCH (13:41)
[2016-11-21] MEDS: TBO-FILGRASTIM 480 MCG/0.8 ML SQ SCH (16:10)
[2016-11-21 19:18] VITALS: BP 134/71
[2016-11-22] MEDS: ACETAMINOPHEN 325 MG TABLET PO PRN ×3 (03:10→19:53)
[2016-11-22] MEDS: SODIUM CHLORIDE 0.9% 1,000 ML IV SCH ×2 (03:10→14:46)
[2016-11-22 03:13] VITALS: BP 127/73
[2016-11-22 05:16] LABS: HEMOGLOBIN 7.8 g/dL (13.7-18.0)
[2016-11-22 05:20] LABS: HEMATOCRIT 22.3 % (39.2-51.8); WHITE BLOOD COUNT 0.4 x10^3/uL (3.4-10)
[2016-11-22 05:21] LABS: BLOOD UREA NITROGEN 10 mg/dL (7-18)
[2016-11-22 05:26] LABS: ASPARTATE AMINO TRANSFERASE 42 U/L (15-37)
[2016-11-22 05:47] LABS: ANISOCYTOSIS 1+; DIFF TOTAL CELLS COUNTED 25 CELL DIFF; OVALOCYTES 1+; VERIFY COUNTS? YES
[2016-11-22 07:59] VITALS: BP 114/70
[2016-11-22] MEDS: MEROPENEM 1 GM in SODIUM CHLORIDE 0.9% 100 ML IV SCH ×3 (08:04→15:51)
[2016-11-22] MEDS: ALLOPURINOL 300 MG TABLET PO SCH (08:57)
[2016-11-22] MEDS: ACYCLOVIR 400 MG TABLET PO SCH ×2 (08:57→19:52)
[2016-11-22] MEDS ORDERED: LIDOCAINE 2% VISCOUS 15 ML UDC MM PRN (09:30)
[2016-11-22] MEDS: MICAFUNGIN 100 MG in SODIUM CHLORIDE 0.9% 100 ML IV SCH (09:59)
[2016-11-22] MEDS: NYSTATIN 500,000 UNITS/5 ML UDC PO SCH ×3 (10:50→19:50)
[2016-11-22 13:53] VITALS: BP 100/67
[2016-11-22] MEDS: DAPTOMYCIN 500 MG in SODIUM CHLORIDE 0.9% 100 ML IVPB SCH (14:44)
[2016-11-22] MEDS: TBO-FILGRASTIM 480 MCG/0.8 ML SQ SCH (15:51)
[2016-11-22 19:06] VITALS: BP 115/69
[2016-11-23] MEDS: SODIUM CHLORIDE 0.9% 1,000 ML IV SCH ×2 (02:34→16:13)
[2016-11-23] MEDS: ACETAMINOPHEN 325 MG TABLET PO PRN ×2 (02:34→13:49)
[2016-11-23 02:36] VITALS: BP 110/77
[2016-11-23 02:56] LABS: HEMOGLOBIN 7.7 g/dL (13.7-18.0)
[2016-11-23 02:58] LABS: HEMATOCRIT 22.3 % (39.2-51.8); WHITE BLOOD COUNT 1.2 x10^3/uL (3.4-10)
[2016-11-23 03:05] LABS: ASPARTATE AMINO TRANSFERASE 45 U/L (15-37); BLOOD UREA NITROGEN 9 mg/dL (7-18)
[2016-11-23 03:34] LABS: DIFF TOTAL CELLS COUNTED 100 CELL DIFF
[2016-11-23 03:38] LABS: ANISOCYTOSIS 1+; OVALOCYTES 1+; VERIFY COUNTS? YES
[2016-11-23 07:09] VITALS: BP 108/64
[2016-11-23] MEDS: MEROPENEM 1 GM in SODIUM CHLORIDE 0.9% 100 ML IV SCH ×3 (07:46→23:27)
[2016-11-23] MEDS: NYSTATIN 500,000 UNITS/5 ML UDC PO SCH ×4 (07:46→20:16)
[2016-11-23] MEDS: ACYCLOVIR 400 MG TABLET PO SCH ×2 (07:46→20:16)
[2016-11-23] MEDS: MICAFUNGIN 100 MG in SODIUM CHLORIDE 0.9% 100 ML IV SCH (10:06)
[2016-11-23 13:19] VITALS: BP 99/66
[2016-11-23] MEDS: DAPTOMYCIN 500 MG in SODIUM CHLORIDE 0.9% 100 ML IVPB SCH (13:37)
[2016-11-23] MEDS: TBO-FILGRASTIM 480 MCG/0.8 ML SQ SCH (16:40)
[2016-11-23 20:09] VITALS: BP 108/70
[2016-11-24 03:36] VITALS: BP 109/67
[2016-11-24] MEDS: ACETAMINOPHEN 325 MG TABLET PO PRN (05:06)
[2016-11-24] MEDS: NYSTATIN 500,000 UNITS/5 ML UDC PO SCH ×4 (05:11→21:26)
[2016-11-24] MEDS: SODIUM CHLORIDE 0.9% 1,000 ML IV SCH ×2 (05:11→21:32)
[2016-11-24 05:54] LABS: BLOOD UREA NITROGEN 7 mg/dL (7-18)
[2016-11-24 05:57] LABS: ASPARTATE AMINO TRANSFERASE 25 U/L (15-37)
[2016-11-24 06:26] LABS: HEMOGLOBIN 7.7 g/dL (13.7-18.0); WHITE BLOOD COUNT 4.7 x10^3/uL (3.4-10)
[2016-11-24 06:33] LABS: HEMATOCRIT 22.3 % (39.2-51.8)
[2016-11-24 06:56] LABS: DIFF TOTAL CELLS COUNTED 100 CELL DIFF
[2016-11-24 08:00] VITALS: BP 107/57
[2016-11-24] MEDS: MEROPENEM 1 GM in SODIUM CHLORIDE 0.9% 100 ML IV SCH ×3 (08:13→23:47)
[2016-11-24 09:26] LABS: ANISOCYTOSIS 1+; VERIFY COUNTS? YES
[2016-11-24] MEDS: ACYCLOVIR 400 MG TABLET PO SCH ×2 (09:28→21:26)
[2016-11-24 09:29] LABS: GIANT PLATELETS 1+; OVALOCYTES 1+; POLYCHROMASIA 1+
[2016-11-24] MEDS: MICAFUNGIN 100 MG in SODIUM CHLORIDE 0.9% 100 ML IV SCH (09:29)
[2016-11-24] MEDS: DAPTOMYCIN 500 MG in SODIUM CHLORIDE 0.9% 100 ML IVPB SCH (12:25)
[2016-11-24 14:12] VITALS: BP 121/76
[2016-11-24] MEDS: TBO-FILGRASTIM 480 MCG/0.8 ML SQ SCH (17:49)
[2016-11-24] MEDS ORDERED: OMNIPAQUE 350 MG/ML, 100ML BOTTLE ONE (18:00)
[2016-11-24 19:02] LABS: IS PT STATUS REG ER OR PRE ER? NO
[2016-11-24 20:00] VITALS: BP 111/66
[2016-11-24 22:02] LABS: IS PT STATUS REG ER OR PRE ER? NO
[2016-11-25] MEDS: ACETAMINOPHEN 325 MG TABLET PO PRN (01:42)
[2016-11-25 01:46] VITALS: BP 106/61
[2016-11-25] MEDS: NYSTATIN 500,000 UNITS/5 ML UDC PO SCH ×2 (05:54→11:00)
[2016-11-25 06:11] LABS: HEMOGLOBIN 7.7 g/dL (13.7-18.0); WHITE BLOOD COUNT 16.4 x10^3/uL (3.4-10)
[2016-11-25 06:18] LABS: ASPARTATE AMINO TRANSFERASE 23 U/L (15-37); BLOOD UREA NITROGEN 5 mg/dL (7-18)
[2016-11-25 06:20] LABS: HEMATOCRIT 22.4 % (39.2-51.8)
[2016-11-25 06:23] LABS: IS PT STATUS REG ER OR PRE ER? NO
[2016-11-25 06:37] LABS: DIFF TOTAL CELLS COUNTED 100 CELL DIFF
[2016-11-25 06:43] LABS: ANISOCYTOSIS 1+; VERIFY COUNTS? YES
[2016-11-25 06:44] LABS: POLYCHROMASIA 1+
[2016-11-25 06:45] LABS: OVALOCYTES 1+
[2016-11-25 06:47] LABS: GIANT PLATELETS 1+; LARGE PLATELETS 1+
[2016-11-25 08:08] VITALS: BP 99/59
[2016-11-25 08:19] VITALS: BP 102/63
[2016-11-25] MEDS: ACYCLOVIR 400 MG TABLET PO SCH ×2 (09:19→20:27)
[2016-11-25] MEDS: MEROPENEM 1 GM in SODIUM CHLORIDE 0.9% 100 ML IV SCH (09:19)
[2016-11-25] MEDS: LEVOFLOXACIN/PMX 750MG/150ML 150 ML IV SCH (11:17)
[2016-11-25 13:33] VITALS: BP 115/64
[2016-11-25 20:00] VITALS: BP 108/64
[2016-11-26 02:00] VITALS: BP 109/63
[2016-11-26 04:49] LABS: HEMATOCRIT 22.7 % (39.2-51.8); HEMOGLOBIN 7.6 g/dL (13.7-18.0); WHITE BLOOD COUNT 20.7 x10^3/uL (3.4-10)
[2016-11-26 04:56] LABS: ASPARTATE AMINO TRANSFERASE 24 U/L (15-37); BLOOD UREA NITROGEN 7 mg/dL (7-18)
[2016-11-26 05:13] LABS: DIFF TOTAL CELLS COUNTED 100 CELL DIFF
[2016-11-26 05:15] LABS: ANISOCYTOSIS 1+; OVALOCYTES 1+; POLYCHROMASIA 1+; VERIFY COUNTS? YES
[2016-11-26 05:16] LABS: LARGE PLATELETS 1+
[2016-11-26 08:00] VITALS: BP 110/67
[2016-11-26] MEDS: ACYCLOVIR 400 MG TABLET PO SCH ×2 (09:20→19:56)
[2016-11-26] MEDS: LEVOFLOXACIN/PMX 750MG/150ML 150 ML IV SCH (11:00)
[2016-11-26] MEDS: LEVOFLOXACIN 750 MG TABLET PO SCH (12:21)
[2016-11-26] MEDS ORDERED: ONDANSETRON ODT 4 MG PO PRN (14:30)
[2016-11-26] MEDS ORDERED: TEMAZEPAM 15 MG CAPSULE PO PRN (14:30)
[2016-11-26 15:52] VITALS: BP 104/52
[2016-11-26 19:05] VITALS: BP 105/68
[2016-11-27 01:16] VITALS: BP 102/64
[2016-11-27 04:56] LABS: HEMATOCRIT 23.8 % (39.2-51.8); WHITE BLOOD COUNT 20.9 x10^3/uL (3.4-10)
[2016-11-27 05:06] LABS: BLOOD UREA NITROGEN 10 mg/dL (7-18)
[2016-11-27 05:16] LABS: ASPARTATE AMINO TRANSFERASE 35 U/L (15-37)
[2016-11-27 06:02] LABS: DIFF TOTAL CELLS COUNTED 100 CELL DIFF
[2016-11-27 06:32] LABS: ANISOCYTOSIS 1+; LARGE PLATELETS 1+; POLYCHROMASIA 1+; VERIFY COUNTS? YES
[2016-11-27 07:18] VITALS: BP 106/62
[2016-11-27] MEDS: ACYCLOVIR 400 MG TABLET PO SCH (09:00)
[2016-11-27] MEDS: LEVOFLOXACIN 750 MG TABLET PO SCH (12:24)
[2016-11-27] MEDS ORDERED: PRED5TAB PO (12:33)
[2016-11-27] MEDS ORDERED: ACYC-114 PO (12:33)
[2016-11-27] MEDS ORDERED: TRAM50TA2 PO (12:33)
[2016-11-27] MEDS ORDERED: LEVO750T26 PO (12:33)
== END 2016-11-27 14:35 | disposition home or self-care (01) | DRG 834 ==
LOC: ED 22:12 → EDIP 22:15 → 3NE 23:25 → 3NW 10-28 21:30 → 5SO 11-24 18:39 → ICU 11-24 22:54 → 3NW 11-25 13:00
PROVIDERS: ADMIT Family Medicine; ATTEND Family Medicine
PROC: 07DR3ZX Extraction of Iliac Bone Marrow, Percutaneous Approach, Diagnostic (ICD-10-PCS; principal; 2016-10-30)
PROC: 02HV33Z Insertion of Infusion Device into Superior Vena Cava, Percutaneous Approach (ICD-10-PCS; 2016-10-31)
PROC: B5181ZA Fluoroscopy of Superior Vena Cava using Low Osmolar Contrast, Guidance (ICD-10-PCS; 2016-10-31)
PROC: 30233N1 Transfusion of Nonautologous Red Blood Cells into Peripheral Vein, Percutaneous Approach (ICD-10-PCS; 2016-10-31)
PROC: 3E04305 Introduction of Other Antineoplastic into Central Vein, Percutaneous Approach (ICD-10-PCS; 2016-11-02)
PROC: 30233N1 Transfusion of Nonautologous Red Blood Cells into Peripheral Vein, Percutaneous Approach (ICD-10-PCS; 2016-11-05)
PROC: 30233R1 Transfusion of Nonautologous Platelets into Peripheral Vein, Percutaneous Approach (ICD-10-PCS; 2016-11-11)
PROC: 30233N1 Transfusion of Nonautologous Red Blood Cells into Peripheral Vein, Percutaneous Approach (ICD-10-PCS; 2016-11-13)
PROC: 07DR3ZX Extraction of Iliac Bone Marrow, Percutaneous Approach, Diagnostic (ICD-10-PCS; 2016-11-15)
PROC: 30233R1 Transfusion of Nonautologous Platelets into Peripheral Vein, Percutaneous Approach (ICD-10-PCS; 2016-11-15)
PROC: 30233R1 Transfusion of Nonautologous Platelets into Peripheral Vein, Percutaneous Approach (ICD-10-PCS; 2016-11-15)
PROC: 30233N1 Transfusion of Nonautologous Red Blood Cells into Peripheral Vein, Percutaneous Approach (ICD-10-PCS; 2016-11-15)
PROC: 30233R1 Transfusion of Nonautologous Platelets into Peripheral Vein, Percutaneous Approach (ICD-10-PCS; 2016-11-20)
DX: C92.00 Acute myeloblastic leukemia, not having achieved remission (principal); N17.0 Acute kidney failure with tubular necrosis; E43 Unspecified severe protein-calorie malnutrition; J18.1 Lobar pneumonia, unspecified organism; J90 Pleural effusion, not elsewhere classified; D61.818 Other pancytopenia; D69.3 Immune thrombocytopenic purpura; E87.1 Hypo-osmolality and hyponatremia; K56.7 Ileus, unspecified; L02.416 Cutaneous abscess of left lower limb; Z83.3 Family history of diabetes mellitus; F17.200 Nicotine dependence, unspecified, uncomplicated; D75.89 Other specified diseases of blood and blood-forming organs; Z68.27 Body mass index [BMI] 27.0-27.9, adult; J32.0 Chronic maxillary sinusitis; J34.2 Deviated nasal septum; K12.30 Oral mucositis (ulcerative), unspecified; L27.0 Generalized skin eruption due to drugs and medicaments taken internally; L29.9 Pruritus, unspecified; R13.10 Dysphagia, unspecified; R50.81 Fever presenting with conditions classified elsewhere; J02.9 Acute pharyngitis, unspecified
CPT/HCPCS: 36415; 36569; 70487; 71010; 71275; 74000; 76700; 76937; 77001; 77012; 80048; 80053; 80202; 81001; 82247; 82248; 82550; 82607; 82728; 82746; 83540; 83550; 83605; 83615; 83690; 83735; 84100; 84145; 84484; 84550; 85025; 85097; 85651; 86078; 86140; 86703; 86704; 86706; 86708; 86803; 86850; 86900; 86923; 87040; 87070; 87081; 87086; 87205; 87254; 87324; 87340; 87880; 87899; 88237; 88264; 88280; 88305; 88311; 88313; 93005; 93306; 96360; 99156; G0364; J0878; J1956; J2185; J2248; J2250; J2405; J2997; J3010; J3370; J3490; J9100; J9211; Q0162; Q9967; C1751; G0435; J1200; J1447; J1720; J2310; J7030; J7050; P9037; P9040; S0028

== ENCOUNTER 2016-12-15 06:54 | Inpatient (IN) | payer OTHER ==
[~2016-12-15] VITALS: Ht 172.7 cm; Wt 84.1 kg
[~2016-12-15 06:54] MED LIST: ACYC-114 PO; LEVO750T26 PO; PRED5TAB PO; TRAM50TA2 PO
[2016-12-15 16:58] VITALS: BP 118/72
[2016-12-15 17:38] LABS: HEMATOCRIT 33.6 % (39.2-51.8); HEMOGLOBIN 11.3 g/dL (13.7-18.0); WHITE BLOOD COUNT 4.7 x10^3/uL (3.4-10)
[2016-12-15 17:47] LABS: ASPARTATE AMINO TRANSFERASE 36 U/L (15-37); BLOOD UREA NITROGEN 20 mg/dL (7-18)
[2016-12-15 18:28] LABS: DIFF TOTAL CELLS COUNTED 100 CELL DIFF
[2016-12-15 18:35] LABS: ANISOCYTOSIS 2+; MICROCYTOSIS 1+
[2016-12-15 18:36] VITALS: BP 104/61
[2016-12-15 18:36] LABS: OVALOCYTES 1+
[2016-12-15 18:38] LABS: VERIFY COUNTS? YES
[2016-12-15 20:30] VITALS: BP 104/67
[2016-12-16 02:07] VITALS: BP 131/79
[2016-12-16 06:58] VITALS: BP 112/70
[2016-12-16] MEDS ORDERED: LEVOFLOXACIN 750 MG TABLET PO SCH (09:00)
[2016-12-16] MEDS ORDERED: SODIUM CHLORIDE 0.9% 1,000 ML IV SCH (09:30)
[2016-12-16] MEDS ORDERED: PROCHLORPERAZINE 5 MG/ML, 2ML IVPush PRN (09:30)
[2016-12-16] MEDS: ACYCLOVIR 400 MG TABLET PO SCH ×2 (10:28→20:06)
[2016-12-16] MEDS: [UNRECOGNIZED DRUG - REMARK] MC SCH ×5 (12:00→17:59)
[2016-12-16 13:11] VITALS: BP 100/66
[2016-12-16] MEDS: predniSOLONE OPHTH SUSP 1%, 5ML EACHEYE SCH ×3 (13:49→20:06)
[2016-12-16] MEDS: ONDANSETRON 16 MG, DEXAMETHASONE 10 MG in SODIUM CHLORIDE 0.9% 50 ML IVPB SCH (14:01)
[2016-12-16] MEDS: SODIUM CHLORIDE 0.9% IV SCH (15:01)
[2016-12-16] MEDS: CYTARABINE IV SCH (15:01)
[2016-12-16 20:02] VITALS: BP 112/74
[2016-12-16] MEDS: ENOXAPARIN 40 MG/0.4 ML SQ SCH (20:06)
[2016-12-16] MEDS: SODIUM CHLORIDE 0.9% 1,000 ML IV SCH (20:06)
[2016-12-17 02:18] VITALS: BP 112/70
[2016-12-17] MEDS: CYTARABINE IV SCH (02:39)
[2016-12-17] MEDS: SODIUM CHLORIDE 0.9% IV SCH (02:39)
[2016-12-17 02:44] LABS: HEMATOCRIT 34.2 % (39.2-51.8); HEMOGLOBIN 11.7 g/dL (13.7-18.0); WHITE BLOOD COUNT 5.9 x10^3/uL (3.4-10)
[2016-12-17 02:53] LABS: ASPARTATE AMINO TRANSFERASE 60 U/L (15-37); BLOOD UREA NITROGEN 18 mg/dL (7-18)
[2016-12-17 03:17] LABS: DIFF TOTAL CELLS COUNTED 100 CELL DIFF
[2016-12-17 03:23] LABS: ANISOCYTOSIS 2+; MICROCYTOSIS 1+; OVALOCYTES 1+; VERIFY COUNTS? YES
[2016-12-17] MEDS: predniSOLONE OPHTH SUSP 1%, 5ML EACHEYE SCH ×4 (06:13→19:43)
[2016-12-17] MEDS: SODIUM CHLORIDE 0.9% 1,000 ML IV SCH ×2 (06:13→15:59)
[2016-12-17 07:40] VITALS: BP 110/68
[2016-12-17] MEDS: ACYCLOVIR 400 MG TABLET PO SCH ×2 (08:57→19:43)
[2016-12-17 14:38] VITALS: BP 116/71
[2016-12-17 19:28] VITALS: BP 110/70
[2016-12-17] MEDS: ENOXAPARIN 40 MG/0.4 ML SQ SCH (19:43)
[2016-12-18 00:47] VITALS: BP 108/69
[2016-12-18] MEDS: SODIUM CHLORIDE 0.9% 1,000 ML IV SCH ×3 (01:30→19:58)
[2016-12-18] MEDS: predniSOLONE OPHTH SUSP 1%, 5ML EACHEYE SCH ×4 (04:35→22:41)
[2016-12-18 05:10] LABS: ASPARTATE AMINO TRANSFERASE 32 U/L (15-37); BLOOD UREA NITROGEN 16 mg/dL (7-18)
[2016-12-18 05:27] LABS: HEMATOCRIT 32.2 % (39.2-51.8); HEMOGLOBIN 10.9 g/dL (13.7-18.0); WHITE BLOOD COUNT 5.1 x10^3/uL (3.4-10)
[2016-12-18 07:49] VITALS: BP 104/66
[2016-12-18] MEDS: ACYCLOVIR 400 MG TABLET PO SCH ×2 (08:00→19:58)
[2016-12-18] MEDS: ONDANSETRON 16 MG, DEXAMETHASONE 10 MG in SODIUM CHLORIDE 0.9% 50 ML IVPB SCH (13:22)
[2016-12-18] MEDS: SODIUM CHLORIDE 0.9% IV SCH (14:31)
[2016-12-18] MEDS: CYTARABINE IV SCH (14:31)
[2016-12-18 15:01] VITALS: BP 108/64
[2016-12-18] MEDS: ENOXAPARIN 40 MG/0.4 ML SQ SCH (19:58)
[2016-12-18 20:48] VITALS: BP 110/64
[2016-12-19 01:43] VITALS: BP 104/66
[2016-12-19] MEDS: CYTARABINE IV SCH (01:57)
[2016-12-19] MEDS: SODIUM CHLORIDE 0.9% IV SCH (01:57)
[2016-12-19 02:06] LABS: HEMATOCRIT 32.8 % (39.2-51.8); HEMOGLOBIN 11.1 g/dL (13.7-18.0); WHITE BLOOD COUNT 4.9 x10^3/uL (3.4-10)
[2016-12-19 02:14] LABS: BLOOD UREA NITROGEN 16 mg/dL (7-18)
[2016-12-19 02:20] LABS: ASPARTATE AMINO TRANSFERASE 37 U/L (15-37)
[2016-12-19] MEDS: predniSOLONE OPHTH SUSP 1%, 5ML EACHEYE SCH ×4 (04:21→21:19)
[2016-12-19] MEDS: SODIUM CHLORIDE 0.9% 1,000 ML IV SCH ×2 (04:23→17:21)
[2016-12-19 08:00] VITALS: BP 122/73
[2016-12-19] MEDS: ACYCLOVIR 400 MG TABLET PO SCH ×2 (08:09→19:33)
[2016-12-19 14:00] VITALS: BP 118/80
[2016-12-19 19:00] VITALS: BP 107/66
[2016-12-19] MEDS: ENOXAPARIN 40 MG/0.4 ML SQ SCH (19:34)
[2016-12-20 02:13] VITALS: BP 117/73
[2016-12-20] MEDS: SODIUM CHLORIDE 0.9% 1,000 ML IV SCH ×3 (02:28→23:27)
[2016-12-20 02:46] LABS: HEMATOCRIT 30.5 % (39.2-51.8); HEMOGLOBIN 10.4 g/dL (13.7-18.0); WHITE BLOOD COUNT 3.8 x10^3/uL (3.4-10)
[2016-12-20 02:50] LABS: ASPARTATE AMINO TRANSFERASE 83 U/L (15-37); BLOOD UREA NITROGEN 15 mg/dL (7-18)
[2016-12-20] MEDS: predniSOLONE OPHTH SUSP 1%, 5ML EACHEYE SCH ×4 (05:55→20:05)
[2016-12-20 07:32] VITALS: BP 105/65
[2016-12-20] MEDS: ACYCLOVIR 400 MG TABLET PO SCH ×2 (09:53→20:05)
[2016-12-20] MEDS: ONDANSETRON 16 MG, DEXAMETHASONE 10 MG in SODIUM CHLORIDE 0.9% 50 ML IVPB SCH (13:20)
[2016-12-20 13:28] VITALS: BP 111/65
[2016-12-20] MEDS: CYTARABINE IV SCH (14:56)
[2016-12-20] MEDS: SODIUM CHLORIDE 0.9% IV SCH (14:56)
[2016-12-20 19:39] VITALS: BP 107/70
[2016-12-20] MEDS: ENOXAPARIN 40 MG/0.4 ML SQ SCH (20:06)
[2016-12-21] MEDS: SODIUM CHLORIDE 0.9% IV SCH (02:28)
[2016-12-21] MEDS: CYTARABINE IV SCH (02:28)
[2016-12-21 02:41] LABS: HEMATOCRIT 30.6 % (39.2-51.8); HEMOGLOBIN 10.4 g/dL (13.7-18.0); WHITE BLOOD COUNT 4.2 x10^3/uL (3.4-10)
[2016-12-21 02:52] LABS: ASPARTATE AMINO TRANSFERASE 107 U/L (15-37); BLOOD UREA NITROGEN 18 mg/dL (7-18)
[2016-12-21 02:55] VITALS: BP 110/67
[2016-12-21 03:26] LABS: DIFF TOTAL CELLS COUNTED 100 CELL DIFF
[2016-12-21 03:32] LABS: ANISOCYTOSIS 1+; OVALOCYTES 1+; VERIFY COUNTS? YES
[2016-12-21] MEDS: predniSOLONE OPHTH SUSP 1%, 5ML EACHEYE SCH ×4 (05:37→21:40)
[2016-12-21 08:10] VITALS: BP 116/76
[2016-12-21] MEDS: ACYCLOVIR 400 MG TABLET PO SCH ×2 (09:46→21:40)
[2016-12-21] MEDS: SODIUM CHLORIDE 0.9% 1,000 ML IV SCH ×2 (09:46→21:40)
[2016-12-21 13:19] VITALS: BP 130/77
[2016-12-21 19:29] VITALS: BP 101/67
[2016-12-21] MEDS: ENOXAPARIN 40 MG/0.4 ML SQ SCH (21:41)
[2016-12-22 02:18] VITALS: BP 101/63
[2016-12-22] MEDS: SODIUM CHLORIDE 0.9% 1,000 ML IV SCH ×2 (05:07→15:12)
[2016-12-22] MEDS: predniSOLONE OPHTH SUSP 1%, 5ML EACHEYE SCH ×4 (05:07→20:03)
[2016-12-22 05:44] LABS: BLOOD UREA NITROGEN 17 mg/dL (7-18)
[2016-12-22 05:47] LABS: ASPARTATE AMINO TRANSFERASE 69 U/L (15-37)
[2016-12-22 06:33] LABS: HEMATOCRIT 27.8 % (39.2-51.8); HEMOGLOBIN 9.8 g/dL (13.7-18.0); WHITE BLOOD COUNT 2.3 x10^3/uL (3.4-10)
[2016-12-22] MEDS ORDERED: TBO-FILGRASTIM 480 MCG/0.8 ML SQ ONE (09:00)
[2016-12-22 09:04] VITALS: BP 117/66
[2016-12-22] MEDS: ACYCLOVIR 400 MG TABLET PO SCH ×2 (09:42→20:03)
[2016-12-22 13:20] VITALS: BP 103/67
[2016-12-22 19:00] VITALS: BP 106/68
[2016-12-23] MEDS: SODIUM CHLORIDE 0.9% 1,000 ML IV SCH ×3 (00:33→20:20)
[2016-12-23 00:50] VITALS: BP 100/66
[2016-12-23] MEDS: predniSOLONE OPHTH SUSP 1%, 5ML EACHEYE SCH ×4 (06:15→20:19)
[2016-12-23 06:39] LABS: HEMATOCRIT 29.5 % (39.2-51.8); WHITE BLOOD COUNT 11.5 x10^3/uL (3.4-10)
[2016-12-23 06:41] LABS: ASPARTATE AMINO TRANSFERASE 37 U/L (15-37); BLOOD UREA NITROGEN 20 mg/dL (7-18)
[2016-12-23 08:21] VITALS: BP 100/65
[2016-12-23] MEDS: ACYCLOVIR 400 MG TABLET PO SCH ×2 (10:17→20:19)
[2016-12-23 14:35] VITALS: BP 106/72
[2016-12-23 18:24] VITALS: BP 103/69
[2016-12-24] VITALS (7 sets, daily range): BP systolic 101–113; BP diastolic 53–71
[2016-12-24] MEDS: predniSOLONE OPHTH SUSP 1%, 5ML EACHEYE SCH ×4 (05:12→20:08)
[2016-12-24 05:31] LABS: HEMATOCRIT 28.3 % (39.2-51.8); HEMOGLOBIN 9.7 g/dL (13.7-18.0); WHITE BLOOD COUNT 5.6 x10^3/uL (3.4-10)
[2016-12-24 05:39] LABS: BLOOD UREA NITROGEN 19 mg/dL (7-18)
[2016-12-24 05:43] LABS: ASPARTATE AMINO TRANSFERASE 32 U/L (15-37)
[2016-12-24] MEDS ORDERED: ACETAMINOPHEN 325 MG TABLET PO ONE (07:30)
[2016-12-24] MEDS ORDERED: DIPHENHYDRAMINE 25 MG CAPSULE PO ONE (07:30)
[2016-12-24] MEDS: ACYCLOVIR 400 MG TABLET PO SCH ×2 (08:46→20:08)
[2016-12-24] MEDS: ONDANSETRON 2MG/ML, 2ML IVPush PRN (08:47)
[2016-12-24] MEDS: SODIUM CHLORIDE 0.9% 1,000 ML IV SCH ×2 (08:48→17:14)
[2016-12-25 03:47] VITALS: BP 115/73
[2016-12-25] MEDS: SODIUM CHLORIDE 0.9% 1,000 ML IV SCH ×3 (04:20→21:13)
[2016-12-25 04:46] LABS: HEMATOCRIT 27.1 % (39.2-51.8); HEMOGLOBIN 9.3 g/dL (13.7-18.0); WHITE BLOOD COUNT 2.3 x10^3/uL (3.4-10)
[2016-12-25] MEDS: predniSOLONE OPHTH SUSP 1%, 5ML EACHEYE SCH ×4 (04:49→21:13)
[2016-12-25 05:03] LABS: ASPARTATE AMINO TRANSFERASE 33 U/L (15-37); BLOOD UREA NITROGEN 16 mg/dL (7-18)
[2016-12-25 07:49] VITALS: BP 100/67
[2016-12-25] MEDS: ACYCLOVIR 400 MG TABLET PO SCH ×2 (10:29→21:13)
[2016-12-25 14:11] VITALS: BP 97/65
[2016-12-25] MEDS: TBO-FILGRASTIM 480 MCG/0.8 ML SQ SCH (14:30)
[2016-12-25 19:35] VITALS: BP 105/67
[2016-12-26 01:57] VITALS: BP 91/62
[2016-12-26] MEDS: predniSOLONE OPHTH SUSP 1%, 5ML EACHEYE SCH ×4 (06:06→20:58)
[2016-12-26] MEDS: SODIUM CHLORIDE 0.9% 1,000 ML IV SCH (06:06)
[2016-12-26 06:34] LABS: HEMATOCRIT 26.7 % (39.2-51.8); HEMOGLOBIN 9.1 g/dL (13.7-18.0); WHITE BLOOD COUNT 2.4 x10^3/uL (3.4-10)
[2016-12-26 06:36] LABS: BLOOD UREA NITROGEN 14 mg/dL (7-18)
[2016-12-26 06:40] LABS: ASPARTATE AMINO TRANSFERASE 23 U/L (15-37)
[2016-12-26 08:00] VITALS: BP 107/74
[2016-12-26] MEDS: ACYCLOVIR 400 MG TABLET PO SCH ×2 (08:52→20:58)
[2016-12-26] MEDS: TBO-FILGRASTIM 480 MCG/0.8 ML SQ SCH (09:58)
[2016-12-26 14:30] VITALS: BP 115/70
[2016-12-26 19:21] VITALS: BP 109/64
[2016-12-27 00:49] VITALS: BP 116/72
[2016-12-27] MEDS: predniSOLONE OPHTH SUSP 1%, 5ML EACHEYE SCH ×4 (05:55→20:32)
[2016-12-27 06:27] LABS: HEMATOCRIT 25.8 % (39.2-51.8); HEMOGLOBIN 8.9 g/dL (13.7-18.0)
[2016-12-27 06:31] LABS: BLOOD UREA NITROGEN 13 mg/dL (7-18)
[2016-12-27 06:35] LABS: ASPARTATE AMINO TRANSFERASE 22 U/L (15-37)
[2016-12-27 07:15] LABS: WHITE BLOOD COUNT 1.4 x10^3/uL (3.4-10)
[2016-12-27 09:12] VITALS: BP 104/65
[2016-12-27] MEDS: ACYCLOVIR 400 MG TABLET PO SCH ×2 (09:37→20:31)
[2016-12-27 09:57] VITALS: BP 103/60
[2016-12-27] MEDS: TBO-FILGRASTIM 480 MCG/0.8 ML SQ SCH (10:13)
[2016-12-27] MEDS ORDERED: ACETAMINOPHEN 325 MG TABLET PO PRN (11:30)
[2016-12-27] MEDS ORDERED: DIPHENHYDRAMINE 50 MG/ML, 1ML IVPush PRN (11:30)
[2016-12-27] MEDS: FLUCONAZOLE 200 MG TABLET PO SCH (12:03)
[2016-12-27 14:08] VITALS: BP 106/69
[2016-12-27 19:30] VITALS: BP 105/60
[2016-12-27] MEDS: CIPROFLOXACIN 500 MG TABLET PO SCH (20:31)
[2016-12-28 03:29] VITALS: BP 112/70
[2016-12-28] MEDS: predniSOLONE OPHTH SUSP 1%, 5ML EACHEYE SCH ×4 (05:20→19:46)
[2016-12-28 06:09] LABS: BLOOD UREA NITROGEN 17 mg/dL (7-18)
[2016-12-28 06:14] LABS: ASPARTATE AMINO TRANSFERASE 20 U/L (15-37)
[2016-12-28 06:15] LABS: HEMATOCRIT 24.5 % (39.2-51.8); HEMOGLOBIN 8.6 g/dL (13.7-18.0)
[2016-12-28 06:17] LABS: WHITE BLOOD COUNT 0.8 x10^3/uL (3.4-10)
[2016-12-28 07:03] LABS: DIFF TOTAL CELLS COUNTED 25 CELL DIFFERENTIAL
[2016-12-28 07:06] LABS: VERIFY COUNTS? YES
[2016-12-28 07:07] LABS: ANISOCYTOSIS 1+
[2016-12-28 08:26] VITALS: BP 97/68
[2016-12-28] MEDS: FLUCONAZOLE 200 MG TABLET PO SCH (09:04)
[2016-12-28] MEDS: ACYCLOVIR 400 MG TABLET PO SCH ×2 (09:05→19:46)
[2016-12-28] MEDS: CIPROFLOXACIN 500 MG TABLET PO SCH ×2 (09:05→19:46)
[2016-12-28] MEDS: TBO-FILGRASTIM 480 MCG/0.8 ML SQ SCH (09:07)
[2016-12-28 14:31] VITALS: BP 103/70
[2016-12-28 19:06] VITALS: BP 98/60
[2016-12-29] VITALS (7 sets, daily range): BP systolic 92–116; BP diastolic 53–78
[2016-12-29] MEDS: predniSOLONE OPHTH SUSP 1%, 5ML EACHEYE SCH ×4 (05:17→21:14)
[2016-12-29 05:56] LABS: HEMATOCRIT 24.6 % (39.2-51.8); HEMOGLOBIN 8.6 g/dL (13.7-18.0)
[2016-12-29 05:58] LABS: ASPARTATE AMINO TRANSFERASE 14 U/L (15-37); BLOOD UREA NITROGEN 19 mg/dL (7-18)
[2016-12-29 06:14] LABS: WHITE BLOOD COUNT 0.7 x10^3/uL (3.4-10)
[2016-12-29 06:23] LABS: DIFF TOTAL CELLS COUNTED 25 CELL DIFFERENTIAL
[2016-12-29 06:24] LABS: VERIFY COUNTS? YES
[2016-12-29 06:25] LABS: ANISOCYTOSIS 1+
[2016-12-29] MEDS: CIPROFLOXACIN 500 MG TABLET PO SCH ×2 (08:40→19:40)
[2016-12-29] MEDS: TBO-FILGRASTIM 480 MCG/0.8 ML SQ SCH (08:40)
[2016-12-29] MEDS: FLUCONAZOLE 200 MG TABLET PO SCH (08:41)
[2016-12-29] MEDS: ACYCLOVIR 400 MG TABLET PO SCH ×2 (08:41→19:40)
[2016-12-30] VITALS (7 sets, daily range): BP systolic 91–105; BP diastolic 62–71
[2016-12-30] MEDS: predniSOLONE OPHTH SUSP 1%, 5ML EACHEYE SCH (05:43)
[2016-12-30 06:28] LABS: HEMATOCRIT 23.3 % (39.2-51.8); HEMOGLOBIN 8.2 g/dL (13.7-18.0)
[2016-12-30 06:30] LABS: WHITE BLOOD COUNT 0.6 x10^3/uL (3.4-10)
[2016-12-30 06:46] LABS: ASPARTATE AMINO TRANSFERASE 11 U/L (15-37); BLOOD UREA NITROGEN 17 mg/dL (7-18)
[2016-12-30 07:39] LABS: DIFF TOTAL CELLS COUNTED 100 CELL DIFF
[2016-12-30 07:43] LABS: VERIFY COUNTS? YES
[2016-12-30 07:44] LABS: ANISOCYTOSIS 1+
[2016-12-30] MEDS: FLUCONAZOLE 200 MG TABLET PO SCH (08:51)
[2016-12-30] MEDS: CIPROFLOXACIN 500 MG TABLET PO SCH ×2 (08:52→20:50)
[2016-12-30] MEDS: ACYCLOVIR 400 MG TABLET PO SCH ×2 (08:52→20:50)
[2016-12-30] MEDS: TBO-FILGRASTIM 480 MCG/0.8 ML SQ SCH (08:53)
[2016-12-30] MEDS ORDERED: PROCHLORPERAZINE 5 MG/ML, 2ML IVPush PRN (19:30)
[2016-12-30] MEDS ORDERED: DIPHENHYDRAMINE 50 MG/ML, 1ML IVPush PRN (19:30)
[2016-12-31 01:34] VITALS: BP 102/67
[2016-12-31 05:44] LABS: HEMOGLOBIN 7.5 g/dL (13.7-18.0)
[2016-12-31 05:56] LABS: ASPARTATE AMINO TRANSFERASE 9 U/L (15-37); BLOOD UREA NITROGEN 16 mg/dL (7-18)
[2016-12-31 05:57] LABS: HEMATOCRIT 21.4 % (39.2-51.8); WHITE BLOOD COUNT 0.7 x10^3/uL (3.4-10)
[2016-12-31 06:12] LABS: DIFF TOTAL CELLS COUNTED 25 CELL DIFFERENTIAL
[2016-12-31 06:14] LABS: ANISOCYTOSIS 1+; VERIFY COUNTS? YES
[2016-12-31 07:35] VITALS: BP 102/63
[2016-12-31] MEDS: CIPROFLOXACIN 500 MG TABLET PO SCH ×2 (09:05→20:21)
[2016-12-31] MEDS: FLUCONAZOLE 200 MG TABLET PO SCH (09:05)
[2016-12-31] MEDS: ACYCLOVIR 400 MG TABLET PO SCH ×2 (09:05→20:21)
[2016-12-31] MEDS: TBO-FILGRASTIM 480 MCG/0.8 ML SQ SCH (10:12)
[2016-12-31 13:57] VITALS: BP 110/65
[2016-12-31 19:46] VITALS: BP 102/57
[2016-12-31] MEDS: ACETAMINOPHEN 325 MG TABLET PO PRN (20:23)
[2017-01-01] VITALS (10 sets, daily range): BP systolic 92–113; BP diastolic 67–74
[2017-01-01] MEDS: ACETAMINOPHEN 325 MG TABLET PO PRN ×5 (02:49→22:40)
[2017-01-01] MEDS ORDERED: SODIUM CHLORIDE 0.9% 1,000ML IVBOLUS ONE (03:00)
[2017-01-01] MEDS: SODIUM CHLORIDE 0.9% 1,000 ML IV SCH ×4 (04:01→23:30)
[2017-01-01] MEDS: CEFEPIME 2 GM in DEXTROSE 5% 100 ML IV SCH (04:01)
[2017-01-01 05:51] LABS: HEMOGLOBIN 7.5 g/dL (13.7-18.0)
[2017-01-01 06:16] LABS: ASPARTATE AMINO TRANSFERASE 10 U/L (15-37); BLOOD UREA NITROGEN 15 mg/dL (7-18)
[2017-01-01 06:18] LABS: WHITE BLOOD COUNT 0.4 x10^3/uL (3.4-10)
[2017-01-01 06:22] LABS: DIFF TOTAL CELLS COUNTED 100 CELL DIFF
[2017-01-01 06:26] LABS: ANISOCYTOSIS 1+; VERIFY COUNTS? YES
[2017-01-01] MEDS: ACYCLOVIR 400 MG TABLET PO SCH ×2 (10:07→21:11)
[2017-01-01] MEDS: FLUCONAZOLE 200 MG TABLET PO SCH (10:08)
[2017-01-01] MEDS: TBO-FILGRASTIM 480 MCG/0.8 ML SQ SCH (11:21)
[2017-01-01] MEDS ORDERED: HYDROCORTISONE 100 MG INJ. IVPush ONE ×2 (11:30→17:00)
[2017-01-01] MEDS ORDERED: CATHFLO-ALTEPLASE 2 MG/2 ML CATHFLUSH ONE (15:30)
[2017-01-01] MEDS ORDERED: VANCOMYCIN PER PHARMACY MC PRN (18:30)
[2017-01-01] MEDS: DAPTOMYCIN 520 MG in SODIUM CHLORIDE 0.9% 100 ML IVPB SCH (21:11)
[2017-01-02] VITALS (10 sets, daily range): BP systolic 98–128; BP diastolic 62–80
[2017-01-02] MEDS: CEFEPIME 2 GM in DEXTROSE 5% 100 ML IV SCH ×3 (04:22→21:46)
[2017-01-02 05:54] LABS: HEMOGLOBIN 7.3 g/dL (13.7-18.0)
[2017-01-02 05:55] LABS: ASPARTATE AMINO TRANSFERASE 7 U/L (15-37); BLOOD UREA NITROGEN 13 mg/dL (7-18); HEMATOCRIT 20.7 % (39.2-51.8); WHITE BLOOD COUNT 0.4 x10^3/uL (3.4-10)
[2017-01-02 06:18] LABS: DIFF TOTAL CELLS COUNTED 100 CELL DIFF
[2017-01-02] MEDS: ACETAMINOPHEN 325 MG TABLET PO PRN ×4 (07:27→23:53)
[2017-01-02] MEDS: SODIUM CHLORIDE 0.9% 1,000 ML IV SCH ×2 (07:27→16:37)
[2017-01-02 08:11] LABS: ANISOCYTOSIS 1+; VERIFY COUNTS? YES
[2017-01-02] MEDS: ACYCLOVIR 400 MG TABLET PO SCH ×2 (10:09→20:26)
[2017-01-02] MEDS: FLUCONAZOLE 200 MG TABLET PO SCH (10:09)
[2017-01-02] MEDS: TBO-FILGRASTIM 480 MCG/0.8 ML SQ SCH (10:10)
[2017-01-02] MEDS: HYDROCORTISONE 100 MG INJ. IVPush PRN (15:03)
[2017-01-02] MEDS: DAPTOMYCIN 520 MG in SODIUM CHLORIDE 0.9% 100 ML IVPB SCH (20:26)
[2017-01-03] VITALS (10 sets, daily range): BP systolic 95–113; BP diastolic 56–75
[2017-01-03] MEDS: SODIUM CHLORIDE 0.9% 1,000 ML IV SCH ×3 (01:02→22:58)
[2017-01-03 04:38] LABS: ASPARTATE AMINO TRANSFERASE 10 U/L (15-37); BLOOD UREA NITROGEN 13 mg/dL (7-18)
[2017-01-03 04:41] LABS: HEMATOCRIT 18.1 % (39.2-51.8); HEMOGLOBIN 6.4 g/dL (13.7-18.0); WHITE BLOOD COUNT 0.6 x10^3/uL (3.4-10)
[2017-01-03 05:06] LABS: ANISOCYTOSIS 1+; DIFF TOTAL CELLS COUNTED 25 CELL DIFFERENTIAL; VERIFY COUNTS? YES
[2017-01-03] MEDS: CEFEPIME 2 GM in DEXTROSE 5% 100 ML IV SCH ×3 (05:21→22:58)
[2017-01-03] MEDS: ACETAMINOPHEN 325 MG TABLET PO PRN (05:30)
[2017-01-03] MEDS: FLUCONAZOLE 200 MG TABLET PO SCH (08:40)
[2017-01-03] MEDS: HYDROCORTISONE 100 MG INJ. IVPush PRN (08:40)
[2017-01-03] MEDS: ACYCLOVIR 400 MG TABLET PO SCH ×2 (08:40→21:13)
[2017-01-03] MEDS: TBO-FILGRASTIM 480 MCG/0.8 ML SQ SCH (10:08)
[2017-01-03] MEDS: DAPTOMYCIN 520 MG in SODIUM CHLORIDE 0.9% 100 ML IVPB SCH (22:02)
[2017-01-04] MEDS: ACETAMINOPHEN 325 MG TABLET PO PRN (01:59)
[2017-01-04 02:01] VITALS: BP 123/78
[2017-01-04] MEDS: CEFEPIME 2 GM in DEXTROSE 5% 100 ML IV SCH ×3 (05:52→21:53)
[2017-01-04] MEDS: FLUCONAZOLE 200 MG TABLET PO SCH (07:57)
[2017-01-04] MEDS: SODIUM CHLORIDE 0.9% 1,000 ML IV SCH ×2 (07:57→14:28)
[2017-01-04] MEDS: ACYCLOVIR 400 MG TABLET PO SCH ×2 (07:57→20:49)
[2017-01-04 08:06] VITALS: BP 133/78
[2017-01-04 09:25] LABS: BLOOD UREA NITROGEN 13 mg/dL (7-18)
[2017-01-04 09:28] LABS: ASPARTATE AMINO TRANSFERASE 15 U/L (15-37)
[2017-01-04 09:33] LABS: HEMOGLOBIN 7.6 g/dL (13.7-18.0)
[2017-01-04 09:37] LABS: HEMATOCRIT 21.5 % (39.2-51.8); WHITE BLOOD COUNT 1.2 x10^3/uL (3.4-10)
[2017-01-04] MEDS: TBO-FILGRASTIM 480 MCG/0.8 ML SQ SCH (10:28)
[2017-01-04 13:07] LABS: HUMAN METAPNEUMOVIRUS Negative (Negative); INFLUENZA A DFA Negative (Negative); INFLUENZA B DFA Negative (Negative); PARAINFLUENZA DFA Negative (Negative); RESPIRATORY SYNCYTIAL VIRS DFA Negative (Negative)
[2017-01-04 14:08] VITALS: BP 116/78
[2017-01-04] MEDS: NS + 20MEQ KCL 1,000 ML IV SCH (19:33)
[2017-01-04 19:51] VITALS: BP 115/74
[2017-01-04] MEDS: DAPTOMYCIN 520 MG in SODIUM CHLORIDE 0.9% 100 ML IVPB SCH (20:49)
[2017-01-05 01:30] VITALS: BP 120/73
[2017-01-05] MEDS: ACETAMINOPHEN 325 MG TABLET PO PRN (01:35)
[2017-01-05 04:33] LABS: HEMOGLOBIN 7.2 g/dL (13.7-18.0)
[2017-01-05 04:38] LABS: HEMATOCRIT 20.5 % (39.2-51.8); WHITE BLOOD COUNT 1.7 x10^3/uL (3.4-10)
[2017-01-05 04:43] LABS: ASPARTATE AMINO TRANSFERASE 12 U/L (15-37); BLOOD UREA NITROGEN 10 mg/dL (7-18)
[2017-01-05] MEDS: CEFEPIME 2 GM in DEXTROSE 5% 100 ML IV SCH ×2 (05:02→16:37)
[2017-01-05 08:08] VITALS: BP 122/73
[2017-01-05] MEDS: NS + 20MEQ KCL 1,000 ML IV SCH ×2 (08:31→20:54)
[2017-01-05] MEDS: ONDANSETRON 2MG/ML, 2ML IVPush PRN (08:31)
[2017-01-05] MEDS: [UNRECOGNIZED DRUG - REMARK] MC SCH (10:26)
[2017-01-05] MEDS: ACYCLOVIR 400 MG TABLET PO SCH ×2 (10:26→20:54)
[2017-01-05] MEDS: FLUCONAZOLE 200 MG TABLET PO SCH (10:26)
[2017-01-05] MEDS: TBO-FILGRASTIM 480 MCG/0.8 ML SQ SCH (10:27)
[2017-01-05 14:50] VITALS: BP 107/69
[2017-01-05 14:52] VITALS: BP 111/72
[2017-01-05 14:56] VITALS: BP 108/71
[2017-01-05 15:25] LABS: DIFF TOTAL CELLS COUNTED 100 CELL DIFF
[2017-01-05 16:14] LABS: ANISOCYTOSIS 1+
[2017-01-05 17:18] LABS: VERIFY COUNTS? YES
[2017-01-05 20:17] VITALS: BP 112/70
[2017-01-05] MEDS: DAPTOMYCIN 520 MG in SODIUM CHLORIDE 0.9% 100 ML IVPB SCH (20:54)
[2017-01-06] VITALS (10 sets, daily range): BP systolic 107–119; BP diastolic 65–76
[2017-01-06] MEDS: CEFEPIME 2 GM in DEXTROSE 5% 100 ML IV SCH ×4 (00:42→22:18)
[2017-01-06 04:54] LABS: BLOOD UREA NITROGEN 9 mg/dL (7-18)
[2017-01-06 04:55] LABS: WHITE BLOOD COUNT 3.3 x10^3/uL (3.4-10)
[2017-01-06 04:58] LABS: ASPARTATE AMINO TRANSFERASE 13 U/L (15-37)
[2017-01-06 05:43] LABS: HEMATOCRIT 20.3 % (39.2-51.8)
[2017-01-06 05:49] LABS: DIFF TOTAL CELLS COUNTED 100 CELL DIFF
[2017-01-06 05:58] LABS: ANISOCYTOSIS 1+; VERIFY COUNTS? YES
[2017-01-06] MEDS: [UNRECOGNIZED DRUG - REMARK] MC SCH (07:36)
[2017-01-06] MEDS: TBO-FILGRASTIM 480 MCG/0.8 ML SQ SCH (07:36)
[2017-01-06] MEDS: ACYCLOVIR 400 MG TABLET PO SCH ×2 (07:46→21:21)
[2017-01-06] MEDS: FLUCONAZOLE 200 MG TABLET PO SCH (07:46)
[2017-01-06] MEDS: NS + 20MEQ KCL 1,000 ML IV SCH (10:10)
[2017-01-06] MEDS ORDERED: HYDROCORTISONE 100 MG INJ. IVPush ONE (15:30)
[2017-01-06] MEDS ORDERED: DIPHENHYDRAMINE 50 MG/ML, 1ML IVPush PRN (16:30)
[2017-01-06] MEDS ORDERED: PROCHLORPERAZINE 5 MG/ML, 2ML IVPush PRN (16:30)
[2017-01-06] MEDS ORDERED: ONDANSETRON 2MG/ML, 2ML IVPush PRN (16:30)
[2017-01-06] MEDS ORDERED: ACETAMINOPHEN 325 MG TABLET PO PRN (16:30)
[2017-01-07] MEDS: NS + 20MEQ KCL 1,000 ML IV SCH ×3 (01:00→13:30)
[2017-01-07 03:00] VITALS: BP 115/73
[2017-01-07] MEDS: CEFEPIME 2 GM in DEXTROSE 5% 100 ML IV SCH (06:13)
[2017-01-07 08:26] VITALS: BP 147/82
[2017-01-07] MEDS: [UNRECOGNIZED DRUG - REMARK] MC SCH (09:00)
[2017-01-07] MEDS: TBO-FILGRASTIM 480 MCG/0.8 ML SQ SCH (09:00)
[2017-01-07] MEDS: FLUCONAZOLE 200 MG TABLET PO SCH (09:08)
[2017-01-07] MEDS: ACYCLOVIR 400 MG TABLET PO SCH ×2 (09:08→20:37)
[2017-01-07] MEDS ORDERED: CEFAZOLIN 1,000 MG IM SCH (11:00)
[2017-01-07] MEDS ORDERED: CEFAZOLIN 1,000 MG IVPB SCH (11:00)
[2017-01-07 11:01] LABS: HEMATOCRIT 23.7 % (39.2-51.8); HEMOGLOBIN 8.2 g/dL (13.7-18.0); WHITE BLOOD COUNT 3.5 x10^3/uL (3.4-10)
[2017-01-07 11:47] LABS: DIFF TOTAL CELLS COUNTED 100 CELL DIFF
[2017-01-07 11:53] LABS: ANISOCYTOSIS 1+; VERIFY COUNTS? YES
[2017-01-07] MEDS: CEFAZOLIN PMX 2GM/50ML 50 ML IVPB SCH ×2 (13:30→20:37)
[2017-01-07 13:32] VITALS: BP 125/78
[2017-01-07 20:20] VITALS: BP 115/73
[2017-01-07] MEDS ORDERED: NS + 20MEQ KCL 1,000 ML IV SCH (21:00)
[2017-01-08 03:14] VITALS: BP 118/77
[2017-01-08] MEDS: CEFAZOLIN PMX 2GM/50ML 50 ML IVPB SCH ×3 (03:25→20:09)
[2017-01-08 03:37] LABS: ASPARTATE AMINO TRANSFERASE 13 U/L (15-37); BLOOD UREA NITROGEN 11 mg/dL (7-18); HEMATOCRIT 24.7 % (39.2-51.8); HEMOGLOBIN 8.6 g/dL (13.7-18.0); WHITE BLOOD COUNT 3.5 x10^3/uL (3.4-10)
[2017-01-08 03:53] LABS: DIFF TOTAL CELLS COUNTED 100 CELL DIFF
[2017-01-08 03:58] LABS: ANISOCYTOSIS 1+; POLYCHROMASIA 1+; VERIFY COUNTS? YES
[2017-01-08 08:25] VITALS: BP 121/69
[2017-01-08] MEDS: ACYCLOVIR 400 MG TABLET PO SCH ×2 (10:12→21:23)
[2017-01-08] MEDS: [UNRECOGNIZED DRUG - REMARK] MC SCH (10:15)
[2017-01-08] MEDS: TBO-FILGRASTIM 480 MCG/0.8 ML SQ SCH (10:15)
[2017-01-08 14:00] VITALS: BP 114/75
[2017-01-08] MEDS: NS + 20MEQ KCL 1,000 ML IV SCH (15:50)
[2017-01-08 19:20] VITALS: BP 115/75
[2017-01-09] MEDS: NS + 20MEQ KCL 1,000 ML IV SCH ×2 (00:34→11:31)
[2017-01-09 00:40] VITALS: BP_SYST 92; BP_SYST 98; BP_DIAS 49
[2017-01-09] MEDS: CEFAZOLIN PMX 2GM/50ML 50 ML IVPB SCH ×2 (03:05→11:31)
[2017-01-09] MEDS: [UNRECOGNIZED DRUG - REMARK] MC SCH (09:00)
[2017-01-09 09:15] VITALS: BP 112/70
[2017-01-09] MEDS: ACYCLOVIR 400 MG TABLET PO SCH (11:31)
[2017-01-09 14:14] VITALS: BP 109/70
[2017-01-09 15:34] LABS: HEMOGLOBIN 8.9 g/dL (13.7-18.0)
[2017-01-09 16:18] LABS: DIFF TOTAL CELLS COUNTED 100 CELL DIFF
[2017-01-09 16:22] LABS: ANISOCYTOSIS 2+; POLYCHROMASIA 1+; VERIFY COUNTS? YES
== END 2017-01-09 18:45 | disposition home or self-care (01) | DRG 834 ==
LOC: 3NW 16:04
PROVIDERS: ADMIT Internal Medicine Hematology & Oncology; ATTEND Internal Medicine Hematology & Oncology
PROC: 02HV33Z Insertion of Infusion Device into Superior Vena Cava, Percutaneous Approach (ICD-10-PCS; 2016-12-16)
PROC: B5181ZA Fluoroscopy of Superior Vena Cava using Low Osmolar Contrast, Guidance (ICD-10-PCS; 2016-12-16)
PROC: 30233R1 Transfusion of Nonautologous Platelets into Peripheral Vein, Percutaneous Approach (ICD-10-PCS; 2016-12-30)
PROC: 30233N1 Transfusion of Nonautologous Red Blood Cells into Peripheral Vein, Percutaneous Approach (ICD-10-PCS; 2016-12-30)
PROC: 02HV33Z Insertion of Infusion Device into Superior Vena Cava, Percutaneous Approach (ICD-10-PCS; principal; 2017-01-07)
PROC: B5181ZA Fluoroscopy of Superior Vena Cava using Low Osmolar Contrast, Guidance (ICD-10-PCS; 2017-01-07)
DX: C92.00 Acute myeloblastic leukemia, not having achieved remission (principal); D61.810 Antineoplastic chemotherapy induced pancytopenia; F17.200 Nicotine dependence, unspecified, uncomplicated; R50.81 Fever presenting with conditions classified elsewhere; T45.1X5A Adverse effect of antineoplastic and immunosuppressive drugs, initial encounter; Z83.3 Family history of diabetes mellitus; Z88.8 Allergy status to other drugs, medicaments and biological substances
CPT/HCPCS: 36415; 36569; 71010; 76700; 76937; 77001; 80053; 81003; 82550; 83605; 84145; 84550; 85025; 85049; 85651; 86140; 86850; 86900; 86923; 87040; 87077; 87081; 87147; 87186; 87260; 87275; 87276; 87279; 87280; 87299; 93306; J0690; J0878; J1100; J1650; J2405; J3480; J9100; C1751; J1447; J1720; J7030; J7050; P9037; P9040; Q0163

== ENCOUNTER 2017-02-12 10:14 | Inpatient (IN) | payer OTHER ==
[~2017-02-12] VITALS: Ht 172.7 cm; Wt 91.3 kg
[2017-02-12 15:39] VITALS: BP 115/74
[2017-02-12 16:06] LABS: HEMATOCRIT 38.2 % (39.2-51.8); HEMOGLOBIN 13.1 g/dL (13.7-18.0); WHITE BLOOD COUNT 5.1 x10^3/uL (3.4-10)
[2017-02-12 16:18] LABS: ASPARTATE AMINO TRANSFERASE 54 U/L (15-37); BLOOD UREA NITROGEN 12 mg/dL (7-18)
[2017-02-12] MEDS: DEXAMETHASONE OPHTH 0.1%, 5ML EACHEYE SCH (18:06)
[2017-02-12 18:55] VITALS: BP 125/72
[2017-02-12] MEDS ORDERED: ONDANSETRON 8 MG, DEXAMETHASONE 12 MG in SODIUM CHLORIDE 0.9% 50 ML IVPB SCH (19:30)
[2017-02-12] MEDS ORDERED: CYTARABINE IV SCH (20:00)
[2017-02-12] MEDS ORDERED: SODIUM CHLORIDE 0.9% IV SCH (20:00)
[2017-02-13] MEDS ORDERED: LIDOCAINE/PRILOCAINE CRM W/TEG 5GM TP PRN (02:00)
[2017-02-13 02:22] VITALS: BP 121/75
[2017-02-13] MEDS: DEXAMETHASONE OPHTH 0.1%, 5ML EACHEYE SCH ×3 (05:34→20:35)
[2017-02-13 07:00] VITALS: BP 100/61
[2017-02-13] MEDS ORDERED: ONDANSETRON 8 MG, DEXAMETHASONE 12 MG in SODIUM CHLORIDE 0.9% 50 ML IVPB SCH (07:30)
[2017-02-13] MEDS ORDERED: SODIUM CHLORIDE 0.9% IV SCH (08:00)
[2017-02-13] MEDS ORDERED: CYTARABINE IV SCH (08:00)
[2017-02-13] MEDS ORDERED: ONDANSETRON 2MG/ML, 2ML IV SCH (12:00)
[2017-02-13] MEDS: ENOXAPARIN 40 MG/0.4 ML SQ SCH (12:32)
[2017-02-13] MEDS: SODIUM CHLORIDE FLUSH 10ML SYR IVF SCH ×2 (12:33→20:35)
[2017-02-13 14:09] VITALS: BP 112/72
[2017-02-13 17:06] LABS: HEMATOCRIT 38.3 % (39.2-51.8); HEMOGLOBIN 12.9 g/dL (13.7-18.0); WHITE BLOOD COUNT 11.9 x10^3/uL (3.4-10)
[2017-02-13 17:08] LABS: ASPARTATE AMINO TRANSFERASE 34 U/L (15-37); BLOOD UREA NITROGEN 13 mg/dL (7-18)
[2017-02-13 19:40] VITALS: BP 97/59
[2017-02-14 02:48] VITALS: BP 114/66
[2017-02-14 03:39] LABS: ASPARTATE AMINO TRANSFERASE 36 U/L (15-37); BLOOD UREA NITROGEN 15 mg/dL (7-18)
[2017-02-14 03:43] LABS: HEMOGLOBIN 12.8 g/dL (13.7-18.0); WHITE BLOOD COUNT 7.9 x10^3/uL (3.4-10)
[2017-02-14 07:05] VITALS: BP 96/61
[2017-02-14] MEDS: SODIUM CHLORIDE FLUSH 10ML SYR IVF SCH ×2 (10:02→20:34)
[2017-02-14] MEDS: DEXAMETHASONE OPHTH 0.1%, 5ML EACHEYE SCH ×2 (10:03→20:33)
[2017-02-14] MEDS: ENOXAPARIN 40 MG/0.4 ML SQ SCH (10:03)
[2017-02-14 14:07] VITALS: BP 101/60
[2017-02-14 19:44] VITALS: BP 94/60
[2017-02-14] MEDS ORDERED: ONDANSETRON 8 MG, DEXAMETHASONE 12 MG in SODIUM CHLORIDE 0.9% 50 ML IVPB SCH (21:30)
[2017-02-14] MEDS: ONDANSETRON 8 MG, DEXAMETHASONE 12 MG in SODIUM CHLORIDE 0.9% 50 ML IVPB SCH (21:32)
[2017-02-14] MEDS ORDERED: SODIUM CHLORIDE 0.9% IV SCH (22:00)
[2017-02-14] MEDS ORDERED: CYTARABINE IV SCH (22:00)
[2017-02-14] MEDS: CYTARABINE IV SCH (22:16)
[2017-02-14] MEDS: SODIUM CHLORIDE 0.9% IV SCH (22:16)
[2017-02-15 01:08] VITALS: BP 95/52
[2017-02-15 05:55] LABS: HEMATOCRIT 37.9 % (39.2-51.8); HEMOGLOBIN 12.7 g/dL (13.7-18.0); WHITE BLOOD COUNT 3.7 x10^3/uL (3.4-10)
[2017-02-15 06:10] LABS: ASPARTATE AMINO TRANSFERASE 41 U/L (15-37); BLOOD UREA NITROGEN 20 mg/dL (7-18)
[2017-02-15 08:57] VITALS: BP 113/76
[2017-02-15] MEDS ORDERED: ONDANSETRON 2MG/ML, 2ML IV SCH (09:30)
[2017-02-15] MEDS: ONDANSETRON 2MG/ML, 2ML IV SCH (09:36)
[2017-02-15] MEDS: ENOXAPARIN 40 MG/0.4 ML SQ SCH (09:36)
[2017-02-15] MEDS: SODIUM CHLORIDE FLUSH 10ML SYR IVF SCH ×2 (09:37→20:17)
[2017-02-15] MEDS: DEXAMETHASONE OPHTH 0.1%, 5ML EACHEYE SCH ×2 (09:37→20:17)
[2017-02-15] MEDS ORDERED: SODIUM CHLORIDE 0.9% IV SCH (10:00)
[2017-02-15] MEDS ORDERED: CYTARABINE IV SCH (10:00)
[2017-02-15] MEDS: CYTARABINE IV SCH (10:36)
[2017-02-15] MEDS: SODIUM CHLORIDE 0.9% IV SCH (10:36)
[2017-02-15 14:00] VITALS: BP 97/59
[2017-02-15 19:29] VITALS: BP 117/67
[2017-02-16 01:58] VITALS: BP 107/64
[2017-02-16 06:08] LABS: HEMATOCRIT 34.1 % (39.2-51.8); HEMOGLOBIN 11.6 g/dL (13.7-18.0); WHITE BLOOD COUNT 3.4 x10^3/uL (3.4-10)
[2017-02-16 06:22] LABS: ASPARTATE AMINO TRANSFERASE 50 U/L (15-37); BLOOD UREA NITROGEN 18 mg/dL (7-18)
[2017-02-16 07:32] VITALS: BP 94/56
[2017-02-16] MEDS: DEXAMETHASONE OPHTH 0.1%, 5ML EACHEYE SCH ×2 (09:00→20:47)
[2017-02-16] MEDS: SODIUM CHLORIDE FLUSH 10ML SYR IVF SCH ×2 (09:00→20:47)
[2017-02-16] MEDS: ENOXAPARIN 40 MG/0.4 ML SQ SCH (09:06)
[2017-02-16 13:54] VITALS: BP 100/57
[2017-02-16 19:59] VITALS: BP 103/64
[2017-02-16] MEDS: ONDANSETRON 8 MG, DEXAMETHASONE 12 MG in SODIUM CHLORIDE 0.9% 50 ML IVPB SCH (21:32)
[2017-02-16] MEDS: SODIUM CHLORIDE 0.9% IV SCH (22:17)
[2017-02-16] MEDS: CYTARABINE IV SCH (22:17)
[2017-02-17 00:34] VITALS: BP 109/77
[2017-02-17 05:49] LABS: HEMATOCRIT 36.5 % (39.2-51.8); HEMOGLOBIN 12.5 g/dL (13.7-18.0)
[2017-02-17 06:06] LABS: ASPARTATE AMINO TRANSFERASE 65 U/L (15-37); BLOOD UREA NITROGEN 18 mg/dL (7-18)
[2017-02-17 08:00] VITALS: BP 107/68
[2017-02-17] MEDS: SODIUM CHLORIDE FLUSH 10ML SYR IVF SCH (09:00)
[2017-02-17] MEDS: DEXAMETHASONE OPHTH 0.1%, 5ML EACHEYE SCH (09:00)
[2017-02-17] MEDS: ENOXAPARIN 40 MG/0.4 ML SQ SCH (09:02)
[2017-02-17] MEDS: ONDANSETRON 2MG/ML, 2ML IV SCH (09:40)
[2017-02-17] MEDS: CYTARABINE IV SCH (10:15)
[2017-02-17] MEDS: SODIUM CHLORIDE 0.9% IV SCH (10:15)
[2017-02-17 15:06] VITALS: BP 105/67
== END 2017-02-17 16:40 | disposition home or self-care (01) | DRG 836 ==
LOC: 3NW 15:16
PROVIDERS: ADMIT Internal Medicine Hematology & Oncology; ATTEND Internal Medicine Hematology & Oncology
PROC: XW033B3 Introduction of Cytarabine and Daunorubicin Liposome Antineoplastic into Peripheral Vein, Percutaneous Approach, New Technology Group 3 (ICD-10-PCS; principal; 2017-02-12)
DX: C92.01 Acute myeloblastic leukemia, in remission (principal); Z87.891 Personal history of nicotine dependence
CPT/HCPCS: 36415; 80053; 83735; 85025; J1100; J1650; J2405; J9100; J7050

== ENCOUNTER 2017-02-23 17:26 | Inpatient (IN) | payer OTHER ==
[~2017-02-23] VITALS: Ht 172.7 cm; Wt 91.4 kg
[2017-02-23 18:35] LABS: BLOOD UREA NITROGEN 20 mg/dL (7-18)
[2017-02-23 18:56] LABS: HEMATOCRIT 31.4 % (39.2-51.8); HEMOGLOBIN 10.9 g/dL (13.7-18.0)
[2017-02-23 18:57] LABS: WHITE BLOOD COUNT 1.5 x10^3/uL (3.4-10)
[2017-02-23 19:25] LABS: DIFF TOTAL CELLS COUNTED 100 CELL DIFF
[2017-02-23 19:30] LABS: ANISOCYTOSIS 1+
[2017-02-23 19:33] LABS: VERIFY COUNTS? YES
[2017-02-23] MEDS ORDERED: ONDANSETRON 2MG/ML, 2ML IVPush PRN (20:00)
[2017-02-23] MEDS ORDERED: SODIUM CHLORIDE NASAL SPRAY 45ML BOTTLE NAS PRN (20:00)
[2017-02-23] MEDS ORDERED: hydrALAzine 20 MG/ML, 1ML IVPush PRN (20:00)
[2017-02-23] MEDS ORDERED: morphine SULFATE 10 MG/ML, 1ML IVPush PRN (20:00)
[2017-02-23 21:30] VITALS: BP 118/76
[2017-02-23 21:42] VITALS: BP 114/73
[2017-02-23 21:49] VITALS: BP 130/70
[2017-02-23 22:04] VITALS: BP 110/76
[2017-02-23 23:27] VITALS: BP 109/72
[2017-02-23 23:55] VITALS: BP 109/71
[2017-02-24 00:10] VITALS: BP 112/73
[2017-02-24 01:03] VITALS: BP 107/70
[2017-02-24 01:04] VITALS: BP 107/70
[2017-02-24 05:21] LABS: HEMATOCRIT 28.1 % (39.2-51.8); HEMOGLOBIN 9.7 g/dL (13.7-18.0)
[2017-02-24 05:35] LABS: ASPARTATE AMINO TRANSFERASE 24 U/L (15-37); BLOOD UREA NITROGEN 16 mg/dL (7-18)
[2017-02-24 05:47] LABS: WHITE BLOOD COUNT 0.8 x10^3/uL (3.4-10)
[2017-02-24 06:01] LABS: DIFF TOTAL CELLS COUNTED 50 CELL DIFFERENTIAL
[2017-02-24 06:04] LABS: ANISOCYTOSIS 1+; VERIFY COUNTS? YES
[2017-02-24] MEDS ORDERED: PANTOPRAZOLE 40 MG IV IVPush SCH (07:30)
[2017-02-24 07:44] VITALS: BP 102/70
[2017-02-24] MEDS ORDERED: ACYC800T4 PO (09:10)
[2017-02-24] MEDS ORDERED: FLUC200T PO (09:10)
[2017-02-24] MEDS ORDERED: ACYC-114 PO (09:15)
[2017-02-24] MEDS ORDERED: LEVO500T8 PO (09:15)
== END 2017-02-24 11:42 | disposition home or self-care (01) | DRG 836 ==
LOC: ED 19:35 → EDIP 19:45 → 3NW 21:05
PROVIDERS: ADMIT Family Medicine; ATTEND Family Medicine
PROC: 30233R1 Transfusion of Nonautologous Platelets into Peripheral Vein, Percutaneous Approach (ICD-10-PCS; principal; 2017-02-23)
DX: C92.00 Acute myeloblastic leukemia, not having achieved remission (principal); D69.59 Other secondary thrombocytopenia; K06.8 Other specified disorders of gingiva and edentulous alveolar ridge; R04.0 Epistaxis; S40.021A Contusion of right upper arm, initial encounter; S40.022A Contusion of left upper arm, initial encounter; S80.12XA Contusion of left lower leg, initial encounter; S80.11XA Contusion of right lower leg, initial encounter; X58.XXXA Exposure to other specified factors, initial encounter; Y93.89 Activity, other specified; Z87.891 Personal history of nicotine dependence; Y92.89 Other specified places as the place of occurrence of the external cause; Y99.8 Other external cause status
CPT/HCPCS: 36415; 36430; 80048; 80053; 83735; 84100; 84443; 85025; 85610; 85730; 86850; 86900; C9113; P9037

== ENCOUNTER 2017-02-27 18:48 | Inpatient (IN) | payer OTHER ==
[~2017-02-27] VITALS: Ht 172.7 cm; Wt 93.0 kg
[~2017-02-27 18:48] MED LIST changes: +ACYC800T4 PO; +FLUC200T PO; +LEVO500T8 PO
[2017-02-27] MEDS ORDERED: SODIUM CHLORIDE 0.9% 1,000 ML IV ONE (18:56)
[2017-02-27] MEDS ORDERED: ACETAMINOPHEN 500 MG TABLET PO ONE (19:00)
[2017-02-27 19:36] LABS: BLOOD UREA NITROGEN 16 mg/dL (7-18)
[2017-02-27 19:40] LABS: ASPARTATE AMINO TRANSFERASE 26 U/L (15-37)
[2017-02-27 19:53] LABS: HEMATOCRIT 30.3 % (39.2-51.8); HEMOGLOBIN 10.5 g/dL (13.7-18.0)
[2017-02-27 19:55] LABS: WHITE BLOOD COUNT 0.5 x10^3/uL (3.4-10)
[2017-02-27 19:56] LABS: DIFF TOTAL CELLS COUNTED 100 CELL DIFF
[2017-02-27 20:09] LABS: VERIFY COUNTS? YES
[2017-02-27] MEDS ORDERED: CEFEPIME 1 GM in DEXTROSE 5% 50 ML IV ONE (20:30)
[2017-02-27] MEDS ORDERED: hydrALAzine 20 MG/ML, 1ML IVPush PRN (21:00)
[2017-02-27] MEDS ORDERED: ONDANSETRON 2MG/ML, 2ML IVPush PRN (21:00)
[2017-02-27] MEDS ORDERED: LORazepam 2 MG/ML, 1ML IVPush PRN (21:00)
[2017-02-27] MEDS ORDERED: HYDROmorphone 2 MG/ML, 1ML IVPush PRN (21:00)
[2017-02-27 22:14] VITALS: BP 117/68
[2017-02-27] MEDS: SODIUM CHLORIDE 0.9% 1,000 ML IV SCH (23:09)
[2017-02-27] MEDS: ACYCLOVIR 400 MG TABLET PO SCH (23:09)
[2017-02-27] MEDS: FAMOTIDINE 20 MG/2 ML IVPush SCH (23:09)
[2017-02-27] MEDS: LEVOFLOXACIN/PMX 750MG/150ML 150 ML IV SCH (23:12)
[2017-02-27] MEDS: ACETAMINOPHEN 325 MG TABLET PO PRN (23:17)
[2017-02-28] VITALS (8 sets, daily range): BP systolic 89–112; BP diastolic 51–67
[2017-02-28] MEDS: FLUCONAZOLE 200 MG/100 ML 100 ML IV SCH (00:54)
[2017-02-28 04:49] LABS: BLOOD UREA NITROGEN 16 mg/dL (7-18)
[2017-02-28 05:10] LABS: HEMOGLOBIN 8.8 g/dL (13.7-18.0)
[2017-02-28 05:11] LABS: WHITE BLOOD COUNT 0.3 x10^3/uL (3.4-10)
[2017-02-28 05:15] LABS: ANISOCYTOSIS 1+; DIFF TOTAL CELLS COUNTED 25 CELL DIFFERENTIAL; VERIFY COUNTS? YES
[2017-02-28] MEDS ORDERED: MAGNESIUM SULFATE PMX 2GM/50ML 50 ML IV ONE (08:30)
[2017-02-28] MEDS: FAMOTIDINE 20 MG/2 ML IVPush SCH ×2 (08:50→19:46)
[2017-02-28] MEDS: SODIUM CHLORIDE 0.9% 1,000 ML IV SCH ×3 (08:50→21:39)
[2017-02-28] MEDS: ACYCLOVIR 400 MG TABLET PO SCH ×3 (08:50→19:46)
[2017-02-28 14:27] LABS: RAPID INFLUENZA A Negative (Negative); RAPID INFLUENZA B Negative (Negative)
[2017-02-28 18:49] LABS: HEMATOCRIT 23.7 % (39.2-51.8); HEMOGLOBIN 8.2 g/dL (13.7-18.0)
[2017-02-28 18:54] LABS: WHITE BLOOD COUNT 0.4 x10^3/uL (3.4-10)
[2017-02-28] MEDS: LEVOFLOXACIN/PMX 750MG/150ML 150 ML IV SCH (22:35)
[2017-03-01] MEDS: FLUCONAZOLE 200 MG/100 ML 100 ML IV SCH ×2 (00:12→23:45)
[2017-03-01 02:24] VITALS: BP 111/71
[2017-03-01 05:21] LABS: HEMATOCRIT 24.2 % (39.2-51.8); HEMOGLOBIN 8.4 g/dL (13.7-18.0)
[2017-03-01 05:28] LABS: BLOOD UREA NITROGEN 8 mg/dL (7-18)
[2017-03-01 05:47] LABS: WHITE BLOOD COUNT 0.8 x10^3/uL (3.4-10)
[2017-03-01 05:49] LABS: DIFF TOTAL CELLS COUNTED 25 CELL DIFFERENTIAL
[2017-03-01 05:52] LABS: VERIFY COUNTS? YES
[2017-03-01 05:53] LABS: ANISOCYTOSIS 1+
[2017-03-01 07:44] VITALS: BP 129/80
[2017-03-01] MEDS: SODIUM CHLORIDE 0.9% 1,000 ML IV SCH ×3 (10:11→22:04)
[2017-03-01] MEDS: FAMOTIDINE 20 MG/2 ML IVPush SCH ×2 (10:13→20:03)
[2017-03-01] MEDS: ACYCLOVIR 400 MG TABLET PO SCH ×3 (10:13→20:03)
[2017-03-01 13:43] VITALS: BP 118/72
[2017-03-01 18:36] VITALS: BP 108/68
[2017-03-01] MEDS: LEVOFLOXACIN/PMX 750MG/150ML 150 ML IV SCH (22:03)
[2017-03-02] VITALS (7 sets, daily range): BP systolic 100–109; BP diastolic 61–71
[2017-03-02 04:41] LABS: HEMOGLOBIN 7.8 g/dL (13.7-18.0)
[2017-03-02 04:43] LABS: HEMATOCRIT 22.5 % (39.2-51.8); WHITE BLOOD COUNT 1.3 x10^3/uL (3.4-10)
[2017-03-02 04:49] LABS: BLOOD UREA NITROGEN 10 mg/dL (7-18)
[2017-03-02 05:42] LABS: DIFF TOTAL CELLS COUNTED 100 CELL DIFF
[2017-03-02 05:46] LABS: ANISOCYTOSIS 1+; VERIFY COUNTS? YES
[2017-03-02] MEDS: SODIUM CHLORIDE 0.9% 1,000 ML IV SCH ×2 (07:30→17:06)
[2017-03-02] MEDS: ACYCLOVIR 400 MG TABLET PO SCH ×3 (08:32→20:07)
[2017-03-02] MEDS: FAMOTIDINE 20 MG/2 ML IVPush SCH ×2 (08:33→20:07)
[2017-03-02] MEDS: ACETAMINOPHEN 325 MG TABLET PO PRN (08:34)
[2017-03-02] MEDS: LEVOFLOXACIN/PMX 750MG/150ML 150 ML IV SCH (23:18)
[2017-03-03 02:24] VITALS: BP 105/70
[2017-03-03] MEDS: SODIUM CHLORIDE 0.9% 1,000 ML IV SCH (02:25)
[2017-03-03 04:28] LABS: BLOOD UREA NITROGEN 15 mg/dL (7-18)
[2017-03-03 05:38] LABS: HEMOGLOBIN 8.1 g/dL (13.7-18.0); WHITE BLOOD COUNT 2.5 x10^3/uL (3.4-10)
[2017-03-03 05:39] LABS: HEMATOCRIT 22.5 % (39.2-51.8)
[2017-03-03 05:40] LABS: DIFF TOTAL CELLS COUNTED 100 CELL DIFF
[2017-03-03 05:44] LABS: VERIFY COUNTS? YES
[2017-03-03 05:45] LABS: ANISOCYTOSIS 1+
[2017-03-03 06:53] VITALS: BP 117/75
[2017-03-03] MEDS: FAMOTIDINE 20 MG/2 ML IVPush SCH (07:38)
[2017-03-03] MEDS: ACYCLOVIR 400 MG TABLET PO SCH (07:38)
== END 2017-03-03 11:32 | disposition home or self-care (01) | DRG 809 ==
LOC: ED 21:00 → EDIP 21:20 → 3NW 21:20
PROVIDERS: ADMIT Family Medicine; ATTEND Family Medicine
PROC: 30233R1 Transfusion of Nonautologous Platelets into Peripheral Vein, Percutaneous Approach (ICD-10-PCS; principal; 2017-03-03)
DX: D61.810 Antineoplastic chemotherapy induced pancytopenia (principal); C92.00 Acute myeloblastic leukemia, not having achieved remission; E87.1 Hypo-osmolality and hyponatremia; T45.1X5A Adverse effect of antineoplastic and immunosuppressive drugs, initial encounter; R50.81 Fever presenting with conditions classified elsewhere; F17.200 Nicotine dependence, unspecified, uncomplicated; Z83.3 Family history of diabetes mellitus; Z86.14 Personal history of Methicillin resistant Staphylococcus aureus infection; Z86.19 Personal history of other infectious and parasitic diseases; Z88.1 Allergy status to other antibiotic agents; Y92.89 Other specified places as the place of occurrence of the external cause
CPT/HCPCS: 36415; 71010; 80048; 80053; 81003; 83605; 83735; 84145; 85025; 85027; 87040; 87400; 96360; 96361; 96365; 96372; 96375; J0692; J1956; J2405; J1450; J3475; J7030; P9037; S0028

== ENCOUNTER 2017-03-14 08:00 | Inpatient (IN) | payer OTHER ==
[~2017-03-14] VITALS: Ht 172.7 cm; Wt 93.3 kg
[2017-03-14 13:19] LABS: WHITE BLOOD COUNT 2.9 x10^3/uL (3.4-10)
[2017-03-14 13:20] LABS: HEMATOCRIT 28.6 % (39.2-51.8); HEMOGLOBIN 9.8 g/dL (13.7-18.0)
[2017-03-14 13:31] LABS: ASPARTATE AMINO TRANSFERASE 28 U/L (15-37); BLOOD UREA NITROGEN 12 mg/dL (7-18)
[2017-03-14 13:35] LABS: DIFF TOTAL CELLS COUNTED 100 CELL DIFF
[2017-03-14 13:41] LABS: ANISOCYTOSIS 1+; VERIFY COUNTS? YES
[2017-03-14 14:00] VITALS: BP 118/63
[2017-03-14] MEDS: DEXAMETHASONE OPHTH 0.1%, 5ML EACHEYE SCH ×2 (15:43→21:25)
[2017-03-14] MEDS: ONDANSETRON 8 MG, DEXAMETHASONE 12 MG in SODIUM CHLORIDE 0.9% 50 ML IVPB SCH (15:44)
[2017-03-14] MEDS: SODIUM CHLORIDE 0.9% IV SCH (16:50)
[2017-03-14] MEDS: CYTARABINE IV SCH (16:50)
[2017-03-14] MEDS: ENOXAPARIN 40 MG/0.4 ML SQ SCH (16:51)
[2017-03-14 19:17] VITALS: BP 103/59
[2017-03-15] MEDS: ONDANSETRON 2MG/ML, 2ML IV SCH (03:30)
[2017-03-15 04:00] VITALS: BP 96/61
[2017-03-15] MEDS: ONDANSETRON 8 MG, DEXAMETHASONE 12 MG in SODIUM CHLORIDE 0.9% 50 ML IVPB SCH (04:21)
[2017-03-15] MEDS: SODIUM CHLORIDE 0.9% IV SCH (05:04)
[2017-03-15] MEDS: CYTARABINE IV SCH (05:04)
[2017-03-15 07:32] VITALS: BP 106/63
[2017-03-15] MEDS: DEXAMETHASONE OPHTH 0.1%, 5ML EACHEYE SCH ×2 (07:40→21:39)
[2017-03-15] MEDS ORDERED: ONDANSETRON IV SCH (09:00)
[2017-03-15] MEDS ORDERED: DEXTROSE 5% IV SCH (09:00)
[2017-03-15 14:44] VITALS: BP 113/68
[2017-03-15] MEDS: ENOXAPARIN 40 MG/0.4 ML SQ SCH (15:45)
[2017-03-15 20:46] VITALS: BP 111/63
[2017-03-16 01:33] VITALS: BP 107/66
[2017-03-16 07:09] VITALS: BP 102/64
[2017-03-16] MEDS: DEXAMETHASONE OPHTH 0.1%, 5ML EACHEYE SCH ×2 (08:06→20:02)
[2017-03-16 14:34] VITALS: BP 113/69
[2017-03-16] MEDS: ONDANSETRON 8 MG, DEXAMETHASONE 12 MG in SODIUM CHLORIDE 0.9% 50 ML IVPB SCH (16:28)
[2017-03-16] MEDS: CYTARABINE IV SCH (17:05)
[2017-03-16] MEDS: SODIUM CHLORIDE 0.9% IV SCH (17:05)
[2017-03-16] MEDS: ENOXAPARIN 40 MG/0.4 ML SQ SCH (17:09)
[2017-03-16 17:42] LABS: ASPARTATE AMINO TRANSFERASE 24 U/L (15-37); BLOOD UREA NITROGEN 14 mg/dL (7-18)
[2017-03-16 17:57] LABS: ANISOCYTOSIS 1+
[2017-03-16 17:58] LABS: OVALOCYTES 1+; POLYCHROMASIA 1+
[2017-03-16 18:00] LABS: HEMATOCRIT 29.1 % (39.2-51.8); HEMOGLOBIN 10.1 g/dL (13.7-18.0); WHITE BLOOD COUNT 2.5 x10^3/uL (3.4-10)
[2017-03-16 19:02] VITALS: BP 113/64
[2017-03-17 01:02] VITALS: BP 98/54
[2017-03-17] MEDS: ONDANSETRON 2MG/ML, 2ML IV SCH (04:13)
[2017-03-17] MEDS: CYTARABINE IV SCH (04:34)
[2017-03-17] MEDS: SODIUM CHLORIDE 0.9% IV SCH (04:34)
[2017-03-17 04:52] LABS: ASPARTATE AMINO TRANSFERASE 17 U/L (15-37); BLOOD UREA NITROGEN 17 mg/dL (7-18)
[2017-03-17 04:56] LABS: HEMATOCRIT 28.5 % (39.2-51.8); HEMOGLOBIN 9.9 g/dL (13.7-18.0); WHITE BLOOD COUNT 2.8 x10^3/uL (3.4-10)
[2017-03-17 06:27] LABS: DIFF TOTAL CELLS COUNTED 100 CELL DIFF
[2017-03-17 06:30] LABS: ANISOCYTOSIS 1+; POLYCHROMASIA 1+; VERIFY COUNTS? YES
[2017-03-17 06:31] LABS: OVALOCYTES 1+
[2017-03-17 07:00] VITALS: BP 96/64
[2017-03-17] MEDS: DEXAMETHASONE OPHTH 0.1%, 5ML EACHEYE SCH ×2 (08:18→19:56)
[2017-03-17] MEDS: ENOXAPARIN 40 MG/0.4 ML SQ SCH (15:27)
[2017-03-17 19:02] VITALS: BP 100/61
[2017-03-18 00:51] VITALS: BP 106/60
[2017-03-18 05:02] LABS: BLOOD UREA NITROGEN 19 mg/dL (7-18)
[2017-03-18 05:07] LABS: ASPARTATE AMINO TRANSFERASE 29 U/L (15-37)
[2017-03-18 05:22] LABS: HEMATOCRIT 25.9 % (39.2-51.8)
[2017-03-18 05:48] LABS: WHITE BLOOD COUNT 1.9 x10^3/uL (3.4-10)
[2017-03-18 06:37] LABS: DIFF TOTAL CELLS COUNTED 100 CELL DIFF
[2017-03-18 06:41] LABS: ANISOCYTOSIS 1+; VERIFY COUNTS? YES
[2017-03-18 06:42] LABS: OVALOCYTES 1+; POIKILOCYTOSIS 1+
[2017-03-18 06:43] LABS: POLYCHROMASIA 1+
[2017-03-18 07:34] VITALS: BP 115/69
[2017-03-18] MEDS: DEXAMETHASONE OPHTH 0.1%, 5ML EACHEYE SCH ×2 (07:38→21:09)
[2017-03-18 15:25] VITALS: BP 114/69
[2017-03-18] MEDS: ONDANSETRON 8 MG, DEXAMETHASONE 12 MG in SODIUM CHLORIDE 0.9% 50 ML IVPB SCH (15:30)
[2017-03-18] MEDS ORDERED: ONDANSETRON 8 MG, DEXAMETHASONE 12 MG in SODIUM CHLORIDE 0.9% 50 ML IVPB SCH (16:30)
[2017-03-18] MEDS: ENOXAPARIN 40 MG/0.4 ML SQ SCH (17:21)
[2017-03-18] MEDS: SODIUM CHLORIDE 0.9% IV SCH (17:26)
[2017-03-18] MEDS: CYTARABINE IV SCH (17:26)
[2017-03-18 18:55] VITALS: BP 98/60
[2017-03-19 01:41] VITALS: BP 98/58
[2017-03-19 03:22] LABS: HEMATOCRIT 26.6 % (39.2-51.8); HEMOGLOBIN 9.2 g/dL (13.7-18.0); WHITE BLOOD COUNT 2.8 x10^3/uL (3.4-10)
[2017-03-19 03:31] LABS: ASPARTATE AMINO TRANSFERASE 42 U/L (15-37); BLOOD UREA NITROGEN 18 mg/dL (7-18)
[2017-03-19 03:49] LABS: DIFF TOTAL CELLS COUNTED 100 CELL DIFF
[2017-03-19 03:54] LABS: ANISOCYTOSIS 1+; HYPOCHROMIA 1+; OVALOCYTES 1+; POIKILOCYTOSIS 1+; VERIFY COUNTS? YES
[2017-03-19] MEDS: ONDANSETRON 2MG/ML, 2ML IV SCH (04:39)
[2017-03-19] MEDS: SODIUM CHLORIDE 0.9% IV SCH (05:13)
[2017-03-19] MEDS: CYTARABINE IV SCH (05:13)
[2017-03-19 07:17] VITALS: BP 102/58
[2017-03-19] MEDS: DEXAMETHASONE OPHTH 0.1%, 5ML EACHEYE SCH (08:15)
[2017-03-19 14:02] VITALS: BP 113/59
[2017-03-19] MEDS ORDERED: CIPR500T3 PO (16:22)
== END 2017-03-19 16:56 | disposition home or self-care (01) | DRG 839 ==
LOC: 3NW 12:01
PROVIDERS: ADMIT Internal Medicine Hematology & Oncology; ATTEND Internal Medicine Hematology & Oncology
PROC: 02HV33Z Insertion of Infusion Device into Superior Vena Cava, Percutaneous Approach (ICD-10-PCS; principal; 2017-03-15)
PROC: B548ZZA Ultrasonography of Superior Vena Cava, Guidance (ICD-10-PCS; 2017-03-15)
DX: Z51.11 Encounter for antineoplastic chemotherapy (principal); C92.00 Acute myeloblastic leukemia, not having achieved remission; D70.9 Neutropenia, unspecified; R50.81 Fever presenting with conditions classified elsewhere
CPT/HCPCS: 36415; 36569; 76937; 77001; 80053; 83735; 85025; J1100; J1650; J2405; J9100; C1751; J7050

== ENCOUNTER 2017-03-28 21:40 | Inpatient (IN) | payer OTHER ==
[~2017-03-28] VITALS: Ht 172.7 cm; Wt 96.8 kg
[~2017-03-28 21:40] MED LIST changes: +CIPR500T3 PO
[2017-03-28] MEDS ORDERED: IBUPROFEN 200 MG TABLET ONE (22:48)
[2017-03-28] MEDS ORDERED: SODIUM CHLORIDE FLUSH 10ML SYR IVF ONE (23:00)
[2017-03-28] MEDS ORDERED: SODIUM CHLORIDE 0.9% 1,000ML IVBOLUS ONE (23:00)
[2017-03-28] MEDS ORDERED: IBUPROFEN 200 MG TABLET PO ONE (23:00)
[2017-03-28 23:32] LABS: ASPARTATE AMINO TRANSFERASE 23 U/L (15-37); BLOOD UREA NITROGEN 12 mg/dL (7-18); HEMATOCRIT 26.7 % (39.2-51.8); HEMOGLOBIN 9.4 g/dL (13.7-18.0)
[2017-03-28 23:35] LABS: WHITE BLOOD COUNT 0.4 x10^3/uL (3.4-10)
[2017-03-28 23:37] LABS: DIFF TOTAL CELLS COUNTED 100 CELL DIFF
[2017-03-28 23:41] LABS: RAPID INFLUENZA A Negative (Negative); RAPID INFLUENZA B Negative (Negative)
[2017-03-28 23:47] LABS: VERIFY COUNTS? YES
[2017-03-28 23:50] LABS: ANISOCYTOSIS 1+
[2017-03-28 23:51] LABS: HYPOCHROMIA 1+; POIKILOCYTOSIS 1+
[2017-03-29] VITALS (9 sets, daily range): BP systolic 92–127; BP diastolic 61–77
[2017-03-29] MEDS ORDERED: CEFEPIME 1 GM in DEXTROSE 5% 50 ML IV ONE
[2017-03-29] MEDS ORDERED: SODIUM CHLORIDE 0.9% 1,000ML IVBOLUS ONE
[2017-03-29] MEDS ORDERED: SODIUM CHLORIDE 0.9% 1,000 ML IV ONE (01:05)
[2017-03-29] MEDS ORDERED: ONDANSETRON 2MG/ML, 2ML IVPush PRN ×2 (01:30→04:00)
[2017-03-29] MEDS ORDERED: MORPHINE SULFATE 4 MG/ML, 1ML IVPush PRN (01:30)
[2017-03-29] MEDS ORDERED: ONDANSETRON ODT 4 MG PO PRN (04:00)
[2017-03-29] MEDS ORDERED: DOCUSATE 100 MG CAPSULE PO PRN (04:00)
[2017-03-29] MEDS ORDERED: PROMETHAZINE 25 MG/ML, 1ML IM PRN (04:00)
[2017-03-29] MEDS ORDERED: TBO-FILGRASTIM 480 MCG/0.8 ML SQ ONE (04:30)
[2017-03-29 06:39] LABS: IS PT STATUS REG ER OR PRE ER? NO
[2017-03-29] MEDS ORDERED: DIPHENHYDRAMINE 25 MG CAPSULE PO ONE (09:00)
[2017-03-29] MEDS ORDERED: ACETAMINOPHEN 325 MG TABLET PO ONE (09:00)
[2017-03-29] MEDS: SODIUM CHLORIDE 0.9% 1,000 ML IV SCH ×2 (09:56→23:24)
[2017-03-29] MEDS: PIPERACILLIN/TAZO/PMX 4.5GM 100 ML IV SCH ×3 (09:58→21:38)
[2017-03-29 10:41] LABS: IS PT STATUS REG ER OR PRE ER? NO
[2017-03-29] MEDS: LINEZOLID 600 MG TABLET PO SCH ×2 (13:31→21:38)
[2017-03-29] MEDS: MICAFUNGIN 100 MG in SODIUM CHLORIDE 0.9% 100 ML IV SCH (14:59)
[2017-03-29] MEDS: ACETAMINOPHEN 325 MG TABLET PO PRN (19:45)
[2017-03-30 02:34] VITALS: BP 113/72
[2017-03-30] MEDS: PIPERACILLIN/TAZO/PMX 4.5GM 100 ML IV SCH ×3 (02:41→16:08)
[2017-03-30 06:32] LABS: HEMOGLOBIN 7.2 g/dL (13.7-18.0)
[2017-03-30 06:39] LABS: WHITE BLOOD COUNT 1.2 x10^3/uL (3.4-10)
[2017-03-30 06:40] LABS: ASPARTATE AMINO TRANSFERASE 26 U/L (15-37); BLOOD UREA NITROGEN 9 mg/dL (7-18); HEMATOCRIT 20.3 % (39.2-51.8)
[2017-03-30 06:53] LABS: DIFF TOTAL CELLS COUNTED 100 CELL DIFF
[2017-03-30 06:57] LABS: ANISOCYTOSIS 1+; VERIFY COUNTS? YES
[2017-03-30 06:59] LABS: OVALOCYTES 1+
[2017-03-30 07:30] VITALS: BP 116/71
[2017-03-30] MEDS ORDERED: SODIUM PHOSPHATE 10 MMOL in SODIUM CHLORIDE 0.9% 500 ML IV ONE (09:30)
[2017-03-30] MEDS: LINEZOLID 600 MG TABLET PO SCH (10:07)
[2017-03-30] MEDS: SODIUM CHLORIDE 0.9% 1,000 ML IV SCH (11:30)
[2017-03-30 13:28] VITALS: BP 129/80
[2017-03-30] MEDS: MICAFUNGIN 100 MG in SODIUM CHLORIDE 0.9% 100 ML IV SCH (14:02)
[2017-03-30] MEDS: PIPERACILLIN/TAZO/PMX 3.375GM 50 ML IV SCH ×2 (16:30→23:57)
[2017-03-30] MEDS ORDERED: LINEZOLID PMX 600MG/300ML 300 ML IV SCH (16:30)
[2017-03-30 19:31] VITALS: BP 117/72
[2017-03-31 01:19] VITALS: BP 111/72
[2017-03-31] MEDS: SODIUM CHLORIDE 0.9% 1,000 ML IV SCH ×3 (02:49→23:31)
[2017-03-31 05:31] LABS: HEMOGLOBIN 7.3 g/dL (13.7-18.0); WHITE BLOOD COUNT 3.2 x10^3/uL (3.4-10)
[2017-03-31 05:45] LABS: BLOOD UREA NITROGEN 9 mg/dL (7-18); FERRITIN 3088.4 ng/mL (26-388); TOTAL IRON BINDING CAPACITY 164 mcg/dL (250-450); TRANSFERRIN 118 mg/dL (200-360)
[2017-03-31] MEDS: PIPERACILLIN/TAZO/PMX 3.375GM 50 ML IV SCH ×4 (05:52→23:31)
[2017-03-31 06:22] LABS: HEMATOCRIT 20.2 % (39.2-51.8)
[2017-03-31 06:43] VITALS: BP 129/72
[2017-03-31 06:56] LABS: DIFF TOTAL CELLS COUNTED 100 CELL DIFF
[2017-03-31 07:00] LABS: ANISOCYTOSIS 1+; OVALOCYTES 1+; POIKILOCYTOSIS 1+; VERIFY COUNTS? YES
[2017-03-31 13:28] VITALS: BP 114/73
[2017-03-31 20:19] VITALS: BP 111/69
[2017-04-01] VITALS (8 sets, daily range): BP systolic 105–128; BP diastolic 68–83
[2017-04-01 04:21] LABS: BLOOD UREA NITROGEN 11 mg/dL (7-18)
[2017-04-01 04:30] LABS: WHITE BLOOD COUNT 4.3 x10^3/uL (3.4-10)
[2017-04-01 04:31] LABS: HEMATOCRIT 19.6 % (39.2-51.8)
[2017-04-01] MEDS: PIPERACILLIN/TAZO/PMX 3.375GM 50 ML IV SCH ×2 (06:12→12:00)
[2017-04-01 06:48] LABS: DIFF TOTAL CELLS COUNTED 100 CELL DIFF
[2017-04-01 06:52] LABS: ANISOCYTOSIS 1+; OVALOCYTES 1+; POIKILOCYTOSIS 1+; VERIFY COUNTS? YES
[2017-04-01] MEDS ORDERED: ACETAMINOPHEN 325 MG TABLET PO ONE (08:00)
[2017-04-01] MEDS ORDERED: DIPHENHYDRAMINE 50 MG/ML, 1ML IVPush ONE (08:00)
[2017-04-01] MEDS: ACETAMINOPHEN 325 MG TABLET PO PRN (08:54)
== END 2017-04-01 14:13 | disposition home or self-care (01) | DRG 872 ==
LOC: ED 22:27 → EDIP 03-29 01:05 → 3NW 03-29 01:51
PROVIDERS: ADMIT Surgery; ATTEND Surgery
PROC: 30233R1 Transfusion of Nonautologous Platelets into Peripheral Vein, Percutaneous Approach (ICD-10-PCS; 2017-03-29)
PROC: 30233N1 Transfusion of Nonautologous Red Blood Cells into Peripheral Vein, Percutaneous Approach (ICD-10-PCS; principal; 2017-04-01)
DX: A41.9 Sepsis, unspecified organism (principal); C92.00 Acute myeloblastic leukemia, not having achieved remission; D70.9 Neutropenia, unspecified; E44.0 Moderate protein-calorie malnutrition; E87.1 Hypo-osmolality and hyponatremia; E83.39 Other disorders of phosphorus metabolism; F17.200 Nicotine dependence, unspecified, uncomplicated; J11.1 Influenza due to unidentified influenza virus with other respiratory manifestations; K12.30 Oral mucositis (ulcerative), unspecified; Z68.32 Body mass index [BMI] 32.0-32.9, adult; Z88.1 Allergy status to other antibiotic agents; Z92.21 Personal history of antineoplastic chemotherapy
CPT/HCPCS: 36415; 36430; 71010; 80048; 80053; 80061; 81001; 82728; 83036; 83540; 83550; 83605; 83735; 84100; 84145; 84443; 84466; 84484; 85025; 85610; 85730; 86850; 86900; 86923; 87040; 87086; 87400; 93005; 96360; 96361; J0692; J2020; J2248; J2543; J1200; J7030; J7040; P9037; P9040; Q0163

== ENCOUNTER 2017-05-03 05:22 | Day surgery (SDC) | payer OTHER ==
[~2017-05-03] VITALS: Ht 172.7 cm; Wt 99.5 kg
[2017-05-03] MEDS ORDERED: SODIUM CHLORIDE 0.9% 1,000 ML IV SCH (06:10)
[2017-05-03 06:33] VITALS: BP 115/74
[2017-05-03] MEDS ORDERED: NONE PER PT (06:37)
[2017-05-03 06:49] LABS: BASOPHILS # (AUTO) 0.02 x10^3/uL (0-0.1); BASOPHILS % (AUTO) 1 % (0-1); EOSINOPHILS # (AUTO) 0.06 x10^3/uL (0-0.4); EOSINOPHILS % (AUTO) 1 % (1-7); LYMPHOCYTES # (AUTO) 1.99 x10^3/uL (1-3.4); LYMPHOCYTES % (AUTO) 42 % (22-44); MD NO; MEAN CORPUSCULAR HGB CONC 33.9 g/dL (33.2-36.2); MEAN CORPUSCULAR VOLUME 97.4 fL (81-97); MEAN PLATELET VOLUME 8.3 fL (7.4-10.4); MONOCYTES # (AUTO) 0.64 x10^3/uL (0.2-0.8); MONOCYTES % (AUTO) 13 % (2-9); NEUTROPHILS # (AUTO) 2.08 x10^3/uL (1.8-6.8); NEUTROPHILS % (AUTO) 43 % (42-75); PLATELET COUNT 125 x10^3/uL (130-400); RED BLOOD COUNT 3.85 x10^6/uL (4.38-5.82); RED CELL DISTRIBUTION WIDTH 19.7 % (9.4-14.8)
[2017-05-03] MEDS ORDERED: FENTANYL PF 100 MCG/2ML ONE (08:08)
[2017-05-03] MEDS ORDERED: MIDAZOLAM 1 MG/ML, 2ML ONE ×2 (08:08)
[2017-05-03] MEDS ORDERED: LIDOCAINE 1%, 20ML ONE (08:12)
== END 2017-05-03 10:40 ==
LOC: OUT 05:22
PROVIDERS: ATTEND Internal Medicine Hematology & Oncology
DX: C92.00 Acute myeloblastic leukemia, not having achieved remission (principal); D69.6 Thrombocytopenia, unspecified; D53.9 Nutritional anemia, unspecified
CPT/HCPCS: 36415; 38222; 77012; 85025; 85060; 85097; 88305; 88311; 88313; 88360; 99156; J2250; J3010; J3490; J7030; 88237; 88264; 88280; 99157

== ENCOUNTER 2017-06-09 20:40 | Emergency (ER) | payer OTHER ==
[~2017-06-09] VITALS: Ht 175.3 cm; Wt 101.7 kg
[~2017-06-09 20:40] MED LIST changes: +NONE PER PT
[2017-06-09] MEDS ORDERED: SODIUM CHLORIDE FLUSH 10ML SYR IVF ONE (21:30)
[2017-06-09 21:51] LABS: BASOPHILS # (AUTO) 0.01 x10^3/uL (0-0.1); BASOPHILS % (AUTO) 0 % (0-1); EOSINOPHILS # (AUTO) 0.06 x10^3/uL (0-0.4); EOSINOPHILS % (AUTO) 2 % (1-7); LYMPHOCYTES # (AUTO) 2.06 x10^3/uL (1-3.4); LYMPHOCYTES % (AUTO) 54 % (22-44); MD NO; MEAN CORPUSCULAR HEMOGLOBIN 33.7 pg (27.5-34.5); MEAN CORPUSCULAR HGB CONC 34.6 g/dL (33.2-36.2); MEAN CORPUSCULAR VOLUME 97.6 fL (81-97); MONOCYTES # (AUTO) 0.44 x10^3/uL (0.2-0.8); MONOCYTES % (AUTO) 11 % (2-9); NEUTROPHILS # (AUTO) 1.25 x10^3/uL (1.8-6.8); NEUTROPHILS % (AUTO) 33 % (42-75); PLATELET COUNT 50 x10^3/uL (130-400); RED BLOOD COUNT 3.89 x10^6/uL (4.38-5.82); RED CELL DISTRIBUTION WIDTH 13.6 % (9.4-14.8)
[2017-06-09 21:58] LABS: INTERNATIONAL NORMALIZED RATIO 0.96 (0.93-1.1)
[2017-06-09 21:59] LABS: ALANINE AMINOTRANSFERASE 43 U/L (12-78); ALBUMIN 3.5 g/dL (3.4-5.0); ANION GAP 7 mmol/L (5-15); CALCIUM 8.4 mg/dL (8.5-10.1); CHLORIDE 104 mmol/L (98-107); CREATININE 0.93 mg/dL (0.7-1.3)
[2017-06-09 22:02] LABS: ALKALINE PHOSPHATASE 99 U/L (45-117); BILIRUBIN,TOTAL 0.3 mg/dL (0.2-1.0); TOTAL PROTEIN 7.5 g/dL (6.4-8.2)
[2017-06-09 22:43] VITALS: BP 113/75
== END 2017-06-09 22:46 | disposition home or self-care (01) ==
LOC: ED 22:15
DX: B34.9 Viral infection, unspecified (principal); Z87.891 Personal history of nicotine dependence; D69.6 Thrombocytopenia, unspecified; Z88.1 Allergy status to other antibiotic agents
CPT/HCPCS: 36415; 80053; 85025; 85610; 85730; 86850; 86900; 93005; 99285